=== PATIENT | male | born 1955 | race Caucasian/White ===

== ENCOUNTER 2017-10-25 13:53 | Emergency (ER) | payer MEDICARE, OTHER ==
[~2017-10-25] VITALS: Ht 172.7 cm; Wt 104.3 kg
[2017-10-25 14:29] VITALS: BP 108/50
[2017-10-25] MEDS ORDERED: ACETAMINOPHEN ES 500 MG TABLET ONE (15:52)
[2017-10-25] MEDS ORDERED: ACETAMINOPHEN 325 MG TABLET PO ONE (16:00)
== END 2017-10-25 17:45 | disposition home or self-care (01) ==
LOC: ER 13:57
DX: M54.5 Low back pain (principal); M25.512 Pain in left shoulder; M25.552 Pain in left hip; E11.22 Type 2 diabetes mellitus with diabetic chronic kidney disease; G89.29 Other chronic pain; M85.80 Other specified disorders of bone density and structure, unspecified site; N18.6 End stage renal disease; F10.10 Alcohol abuse, uncomplicated; F17.200 Nicotine dependence, unspecified, uncomplicated; W01.0XXA Fall on same level from slipping, tripping and stumbling without subsequent striking against object, initial encounter; Y93.89 Activity, other specified; Y92.89 Other specified places as the place of occurrence of the external cause; Y99.8 Other external cause status
CPT/HCPCS: 72100; 73030; 73503; 99284; A4606; 73502; Z7610

== ENCOUNTER 2018-12-20 16:00 | Inpatient (IN) | payer MEDICARE, OTHER ==
[~2018-12-20] VITALS: Ht 170.2 cm; Wt 123.5 kg
--- NOTE | 2018-12-20 16:20 | NUR ---
BIBRA FROM [facility] C/O CHEST PAIN SINCE YESTERDAY, 324 ASA AND 0.4 NITRO X 3 GIVEN POWER SAW MECHANIC, ALSO C/O SOB & VOMITED X1. DR. ERVIN @ BS FOR EVAL. PLACED ON SEWAGE SCREEN OPERATOR, SR. WILL CONT TO MONITOR.
[2018-12-20 16:26] LABS: BASOPHILS # (AUTO) 0.1 /CMM (0.0-0.2); BASOPHILS % (AUTO) 0.8 % (0.0-2.0); EOSINOPHILS % (AUTO) 3.7 % (0.0-6.0); HEMATOCRIT 26 % (39-51); HEMOGLOBIN 8.7 g/dL (13.5-17.5); LYMPHOCYTES # (AUTO) 0.5 /CMM (0.8-4.8); LYMPHOCYTES % (AUTO) 5.9 % (20.0-44.0); MEAN CORPUSCULAR HGB CONC 33 g/dl (31.0-36.0); MEAN CORPUSCULAR VOLUME 88 fL (80-96); MONOCYTES # (AUTO) 0.6 /CMM (0.1-1.30); MONOCYTES % (AUTO) 6.3 % (2.0-12.0); NEUTROPHILS # (AUTO) 7.5 /CMM (1.8-8.9); NEUTROPHILS % (AUTO) 83.3 % (43.0-81.0); PLATELET COUNT (AUTO) 221 /CMM (150-450); RED BLOOD CELL COUNT(AUTO) 2.98 MIL/uL (4.5-6.0)
[2018-12-20] MEDS ORDERED: ONDANSETRON HCL/PF 4 MG/2 ML VIAL ONE (16:27)
[2018-12-20] MEDS ORDERED: MORPHINE SULFATE INJ 4 MG/ML DISP.SYRIN ONE (16:28)
[2018-12-20] MEDS ORDERED: NITROGLYCERIN PACKET 1 GM PACKET ONE (16:28)
[2018-12-20] MEDS ORDERED: ONDANSETRON HCL/PF 4 MG/2 ML VIAL IVP ONE (16:30)
[2018-12-20] MEDS ORDERED: ASPIRIN 325 MG TABLET PO ONE (16:30)
[2018-12-20] MEDS ORDERED: NITROGLYCERIN PACKET 1 GM PACKET TD ONE (16:30)
[2018-12-20] MEDS ORDERED: MORPHINE SULFATE INJ 2 MG/ML DISP.SYRIN IV ONE (16:30)
--- NOTE | 2018-12-20 16:36 | NUR ---
MEDICATED PER ERMD ORDER, PT ИРИНА WELL. WILL CONT TO MONITOR.
[2018-12-20 16:41] LABS: ALANINE AMINOTRANSFERASE 19 U/L (12-78); ALBUMIN 3.3 g/dL (3.4-5.0); ALKALINE PHOSPHATASE 89 U/L (46-116); ASPARTATE AMINOTRANSFERASE 13 U/L (15-37); BILIRUBIN,DIRECT 0.2 mg/dL (0.0-0.2); BILIRUBIN,TOTAL 0.4 mg/dL (0.2-1.0); CARBON DIOXIDE 22 mmol/L (21-32); CHLORIDE 98 mmol/L (98-107); GLUCOSE 74 mg/dL (74-106); SODIUM SERUM 137 mmol/L (136-145); TOTAL PROTEIN, SERUM 6.6 g/dL (6.4-8.2)
[2018-12-20 16:45] LABS: POTASSIUM 6.2 mmol/L (3.5-5.1)
[2018-12-20 16:46] LABS: CREATININE 13.8 mg/dL (0.6-1.3); UREA NITROGEN, BLOOD 105 mg/dL (7-18)
[2018-12-20] MEDS ORDERED: SODIUM POLYSTYRENE SULFONATE 15 G/60 ML BOTTLE RC ONE (17:00)
[2018-12-20] MEDS ORDERED: DEXTROSE 50%-WATER 50 ML DISP.SYRIN IVP ONE (17:00)
[2018-12-20] MEDS ORDERED: SODIUM BICARBONATE 5 MEQ/10 ML DISP.SYRIN IV ONE (17:00)
[2018-12-20] MEDS ORDERED: INSULIN REGULAR, HUMAN 100 UNIT/ML 10 ML VIAL IV ONE (17:00)
[2018-12-20] MEDS ORDERED: PARO10TA86 PO (17:18)
[2018-12-20] MEDS ORDERED: HYDR-4076 PO (17:18)
[2018-12-20] MEDS ORDERED: METF500T PO (17:18)
[2018-12-20] MEDS ORDERED: FURO40TA5 PO (17:18)
[2018-12-20] MEDS ORDERED: LEVO50TA8 PO (17:18)
[2018-12-20] MEDS ORDERED: CYCL30DR EACHEYE (17:18)
[2018-12-20] MEDS ORDERED: LISI10TA5 PO (17:18)
[2018-12-20] MEDS ORDERED: SEVE800T8 PO (17:18)
[2018-12-20] MEDS ORDERED: SPIR25TA6 PO (17:18)
[2018-12-20] MEDS ORDERED: BUME1TAB4 PO (17:18)
[2018-12-20] MEDS ORDERED: ONDA4TAB10 PO (17:18)
[2018-12-20] MEDS ORDERED: ASPI-1169 PO (17:18)
[2018-12-20] MEDS ORDERED: TAMS-12 PO (17:18)
[2018-12-20] MEDS ORDERED: FERR325T23 PO (17:18)
[2018-12-20] MEDS ORDERED: GLIP5TAB13 PO (17:18)
[2018-12-20] MEDS ORDERED: METO25TA20 PO (17:18)
[2018-12-20] MEDS ORDERED: FAMO20TA8 PO (17:18)
[2018-12-20] MEDS ORDERED: SODIUM BICARBONATE SYR 50 MEQ/50 ML DISP.SYRIN ONE (17:29)
[2018-12-20] MEDS ORDERED: DEXTROSE 50%-WATER 50 ML DISP.SYRIN ONE (17:29)
[2018-12-20] MEDS ORDERED: SODIUM POLYSTYRENE SULFONATE 15 G/60 ML BOTTLE ONE (17:29)
[2018-12-20] MEDS ORDERED: INSULIN REGULAR, HUMAN 100 UNIT/ML 10 ML VIAL ONE (17:30)
--- NOTE | 2018-12-20 17:50 | NUR ---
MEDICATED PER ERMD ORDER, PT ИРИНА WELL. DENIES CP, SOB, DIZZINESS, N/V, WEAKNESS @ THIS TIME. WILL CONT TO MONITOR.
--- NOTE | 2018-12-20 18:47 | NUR ---
BED 310-2
[2018-12-20] MEDS ORDERED: MAG HYDROX/AL HYDROX/SIMETH 30 ML UDC PO PRN (19:30)
[2018-12-20] MEDS ORDERED: MAGNESIUM HYDROXIDE 30 ML UDC PO PRN (19:30)
[2018-12-20] MEDS ORDERED: HYDROCODONE/APAP 5/325MG 1 EACH TABLET PO PRN (19:30)
[2018-12-20] MEDS ORDERED: ACETAMINOPHEN 325 MG TABLET PO PRN (19:30)
[2018-12-20] MEDS ORDERED: Z GUARD REMEDY 2 OZ OINT TP PRN (19:30)
[2018-12-20] MEDS ORDERED: ZOLPIDEM TARTRATE 5 MG TABLET PO PRN (19:30)
[2018-12-20] MEDS ORDERED: ONDANSETRON HCL/PF 4 MG/2 ML VIAL IVP PRN (19:30)
--- NOTE | 2018-12-20 19:58 | NUR ---
REPORT GIVEN TO MARLINE LLOYD FOR CONT OF CARE.
--- NOTE | 2018-12-20 20:05 | NUR ---
ONCOLOGY PHYSICIAN ASSISTANT ADMISSION NOTES RECEIVED PATIENT VIA [facility] FROM ER. PATIENT IS ALERT AND ORIENTED X4, VERBALLY RESPONSIVE, ABLE TO MAKE NEEDS KNOWN. BREATHING EVEN AND UNLABORED. SOB ON EXERTION ONLY. ON 2LPM OXYGEN VIA NC. WITH COMPLAINTS OF PAIN ON THE LEFT CHEST /10, BUT NOT REQUESTING FOR PAIN MEDICATION. IV ON RIGHT WRIST INTACT AND PATENT. SKIN DRY AND WARM TO TOUCH. AFEBRILE. SKIN ASSESSMENT DONE WITH PICTURES TAKEN AND PLACED IN CHART. PATIENT HAS A LEFT FOREARM HD SHUNT, INTACT AND WITH NO EVIDENCE OF BLEEDING. PER PATIENT, HE MISSED DIALYSIS ON Tuesday12/19/18 DUE TO WEAKNESS. ORIENTED TO THE USE OF UNIT AMENITIES. BELONGINGS ACCOUNTED FOR. PATIENT IS AMBULATORY WITH ASSIST DUE TO WEAKNESS. ALL OTHER NEEDS MET. SAFETY MEASURES IN PLACE. CALL LIGHT WITHIN REACH. WILL CONTINUE TO MONITOR.
[2018-12-20 20:30] VITALS: BP 132/65
[2018-12-20 20:31] VITALS: BP 132/65
[2018-12-20] MEDS: hydrALAZINE HCL 25 MG TABLET PO SCH (21:52)
[2018-12-20] MEDS: BLOOD SUGAR DIAGNOSTIC 1 EACH STRIP IN SCH (21:56)
[2018-12-20] MEDS: DEXTROSE 50%-WATER 50 ML DISP.SYRIN IV PRN (21:58)
--- NOTE | 2018-12-20 22:05 | NUR ---
DIAMOND BLENDER NOTES BS 50- DEXTROSE GIVEN, STAT GLUCOSE ORDERED. WILL CONTINUE TO MONITOR.
--- NOTE | 2018-12-20 22:48 | NUR ---
THERMAL CUTTER HAND NOTES STAT GLUCOSE 147. INSULIN HELD TONIGHT. WILL CONTINUE TO MONITOR.
[2018-12-21] VITALS: BP 129/72
[2018-12-21 04:00] VITALS: BP 130/70
[2018-12-21] MEDS: DEXTROSE 50%-WATER 50 ML DISP.SYRIN IV PRN (06:05)
--- NOTE | 2018-12-21 06:16 | NUR ---
CASE PICKER NOTES BS 46. PATIENT IS ALERT AND ORIENTED X3, VERBALLY RESPONSIVE. SIOBHAN MACKAY HERE IN UNIT AND INFORMED HER THAT THIS IS THE SECOND TIME IT HAPPENED SINCE HE WAS TRANSFERRED TO THE UNIT. PER SIOBHAN LLOYD, GIVE THE DEXTROSE, AND D/C GLIPIZIDE. ALSO INFORMED HER THAT A STAT GLUCOSE CHECK WAS ORDERED. WILL CONTINUE TO MONITOR PATIENT AND CARRY OUT ORDERS.
[2018-12-21] MEDS: BLOOD SUGAR DIAGNOSTIC 1 EACH STRIP IN SCH ×4 (06:31→22:05)
[2018-12-21] MEDS: INSULIN REGULAR, HUMAN 100 UNIT/ML 3 ML VIAL SQ PRN (06:35)
[2018-12-21 06:46] LABS: BASOPHILS % (AUTO) 0.5 % (0.0-2.0); EOSINOPHILS % (AUTO) 2.8 % (0.0-6.0); HEMATOCRIT 25 % (39-51); HEMOGLOBIN 8.2 g/dL (13.5-17.5); LYMPHOCYTES # (AUTO) 0.7 /CMM (0.8-4.8); LYMPHOCYTES % (AUTO) 8.6 % (20.0-44.0); MEAN CORPUSCULAR HGB CONC 33 g/dl (31.0-36.0); MEAN CORPUSCULAR VOLUME 88 fL (80-96); MONOCYTES # (AUTO) 0.5 /CMM (0.1-1.30); MONOCYTES % (AUTO) 6.5 % (2.0-12.0); NEUTROPHILS # (AUTO) 6.3 /CMM (1.8-8.9); NEUTROPHILS % (AUTO) 81.6 % (43.0-81.0); PLATELET COUNT (AUTO) 206 /CMM (150-450); RED BLOOD CELL COUNT(AUTO) 2.86 MIL/uL (4.5-6.0); WHITE BLOOD COUNT (AUTO) 7.7 K/uL (4.3-11.0)
[2018-12-21 07:06] LABS: CALCIUM, SERUM 6.5 mg/dL (8.5-10.1); CARBON DIOXIDE 24 mmol/L (21-32); CHLORIDE 99 mmol/L (98-107); GLUCOSE 52 mg/dL (74-106); MAGNESIUM 2.7 mg/dL (1.8-2.4); SODIUM SERUM 137 mmol/L (136-145)
[2018-12-21 07:08] LABS: IRON, SERUM 28 ug/dl (50-175); TOTAL IRON BINDING CAPACITY 257 ug/dl (250-450)
[2018-12-21 07:09] LABS: CHOLESTEROL 53 mg/dL (<200); HDL CHOLESTEROL 39 mg/dL (40-60); LDL 16 mg/dL (0-99); THYROID STIMULATING HORMONE 3.915 uIU/mL (0.358-3.74); TRIGLYCERIDES 41 mg/dL (30-150)
[2018-12-21 07:12] LABS: FERRITIN 258 ng/mL (8-388); TRIGLYCERIDES 41 mg/dL (30-150)
[2018-12-21 07:13] LABS: CHOLESTEROL 53 mg/dL (<200); HDL CHOLESTEROL 39 mg/dL (40-60); LDL 16 mg/dL (0-99)
--- NOTE | 2018-12-21 07:17 | NUR ---
ENVIRONMENTAL SERVICES AIDE NOTES BS 96 AFTER DEXTROSE GIVEN. ENDORSED TO MARLINE FORTE.
--- NOTE | 2018-12-21 07:18 | NUR ---
OUTBOARD MOTOR TESTER CLOSING NOTES PATIENT RESTING IN BED. NOT IN ANY DISTRESS. ON 3LPM OXYGEN VIA NC. SOB ON EXERTION. SEEN BY DR. WOLF ALREADY WITH ORDERS. NO COMPLAINTS OF PAIN OR DISCOMFORT. NO FACIAL GRIMACING. ALL OTHER NEEDS MET. SAFETY MEASURES IN PLACE. CALL LIGHT WITHIN REACH. ENDORSED TO MARLINE FORTE.
[2018-12-21 07:27] LABS: CREATININE 14.3 mg/dL (0.6-1.3); UREA NITROGEN, BLOOD 111 mg/dL (7-18)
[2018-12-21 07:28] LABS: PHOSPHORUS 10.1 mg/dL (2.5-4.9)
[2018-12-21 08:00] VITALS: BP 162/75
[2018-12-21] MEDS: BUMETANIDE (1 MG) 1 MG TABLET PO SCH ×2 (08:23→18:07)
[2018-12-21] MEDS: ASPIRIN 81 MG TAB.CHEW PO SCH (08:23)
[2018-12-21] MEDS: ATORVASTATIN 40 MG TABLET PO SCH (08:23)
[2018-12-21] MEDS: PAROXETINE HCL 10 MG TABLET PO SCH (08:23)
[2018-12-21] MEDS: FERROUS SULFATE (325 MG) 325 MG/TAB TABLET PO SCH (08:23)
[2018-12-21] MEDS: PANTOPRAZOLE 40 MG TABLET.DR PO SCH (08:24)
[2018-12-21] MEDS: METOPROLOL TARTRATE 25 MG TABLET PO SCH ×2 (08:24→18:07)
[2018-12-21] MEDS: LEVOTHYROXINE SODIUM 50 MCG TABLET PO SCH (08:24)
[2018-12-21] MEDS: SEVELAMER CARBONATE 800 MG TABLET PO SCH ×3 (08:24→18:07)
[2018-12-21] MEDS: hydrALAZINE HCL 25 MG TABLET PO SCH ×4 (08:24→21:26)
[2018-12-21] MEDS: TAMSULOSIN 0.4 MG CAP.SR.24H PO SCH (08:24)
[2018-12-21] MEDS: FUROSEMIDE 40 MG TABLET PO SCH (08:26)
[2018-12-21] MEDS: HEPARIN SODIUM, PORCINE 5000 UNITS/1 ML VIAL SQ SCH ×2 (08:34→21:59)
[2018-12-21] MEDS ORDERED: glipiZIDE 5 MG TABLET PO SCH (09:00)
--- NOTE | 2018-12-21 11:43 | NUR ---
BREAD SLICER MACHINE OPENING NOTES Patient received on 3 L o2, nasal cannula. No sob noted. Patient denies pain or discomfort. Patient on Bed at the lowest setting, call light within reach.
[2018-12-21 16:00] VITALS: BP 138/72
--- NOTE | 2018-12-21 18:48 | NUR ---
RN MS CLOSING NOTES Patient resting in bed, on 2L o2 nasal cannula, no sob noted. Patient denies pain. Patient did HD today and took out 3 L of fluid. Patient's vital sign stable all shift. Patient's bed at lowest setting and call light within reach. Will give report to RN bedside for tonight.
--- NOTE | 2018-12-21 19:56 | NUR ---
RN MS OPENING NOTES RECEIVED PT IN BED, AWAKE ALERT ORIENTED X4, BREATHING EVEN AND UNLABORED ON 2L O2 NC. NO SOB, NO CHEST PAIN NO COUGH OR CONGESTION, NO COMPLAINT OF ANY OTHER PAIN OR DISCOMFORT AT THE MOMENT. IV ACCESS ON THE L WRIST #20G PATENT AND FLUSHING, AND LFA SHUNT IN PLACE, DRESSING CLEAN AND DRY. BED IN LOWEST LOCKED POSITION ,CALL LIGHT WITHIN REACH AT ALL TIMES, WILL CONTINUE TO MONITOR FREQUENTLY.
[2018-12-21 20:00] VITALS: BP 150/73
--- NOTE | 2018-12-21 21:01 | NUR ---
Spoke with patient and sister, states he lives locally in one of the unit of a residential facility that patient co-owned. He ambulates with a cane and is semi-independent with adl's. He received hemodialysis every TTHS at [facility] [phone]. He plan to return to home, family will provide transportation. Addendum: 12/21/18 at 2119 by RENU ÁLVAREZ RN Amended: Links added.
--- NOTE | 2018-12-21 22:00 | NUR ---
pt bg of 135, per pt request, no insulin administered since his bg usually drops at night, will continue to monitor
--- NOTE | 2018-12-22 06:17 | NUR ---
RN MS CLOSING NOTES PT REMAINS IN BED, AWAKE ALERT ORIENTED X4, BREATHING EVEN AND UNLABORED ON 2L O2 NC. NO SOB, NO CHEST PAIN NO COUGH OR CONGESTION, NO COMPLAINT OF ANY OTHER PAIN OR DISCOMFORT AT THE MOMENT. IV ACCESS ON THE L WRIST #20G PATENT AND FLUSHING, AND LFA SHUNT IN PLACE, DRESSING CLEAN AND DRY, NO URINE OUTPUT, 2 BMS DURING SHIFT. BED IN LOWEST LOCKED POSITION ,CALL LIGHT WITHIN REACH AT ALL TIMES, WILL ENDORSE TO DAY NURSE FOR FELICIA.
[2018-12-22] MEDS: BLOOD SUGAR DIAGNOSTIC 1 EACH STRIP IN SCH ×4 (06:35→21:04)
--- NOTE | 2018-12-22 07:29 | NUR ---
RN MS OPENING NOTES Received patient on 2 L nasal cannula, no sob noted, and patient is lying down on his bed comfortably. Patient denies pain at this time, patients IV is at the left wrist 20 gauge and flushing. Awaiting for patient's ct angio with 3d imaging, and HD today procedure today.
[2018-12-22 08:00] VITALS: BP 136/69
[2018-12-22 08:01] LABS: ALANINE AMINOTRANSFERASE 17 U/L (12-78); ALBUMIN 3.4 g/dL (3.4-5.0); ALKALINE PHOSPHATASE 90 U/L (46-116); ASPARTATE AMINOTRANSFERASE 27 U/L (15-37); BILIRUBIN,TOTAL 0.5 mg/dL (0.2-1.0); CARBON DIOXIDE 20 mmol/L (21-32); CHLORIDE 95 mmol/L (98-107); GLUCOSE 72 mg/dL (74-106); MAGNESIUM 2.7 mg/dL (1.8-2.4); POTASSIUM 5.9 mmol/L (3.5-5.1); SODIUM SERUM 134 mmol/L (136-145); TOTAL PROTEIN, SERUM 6.9 g/dL (6.4-8.2)
[2018-12-22 08:05] LABS: UREA NITROGEN, BLOOD 99 mg/dL (7-18)
[2018-12-22 08:06] LABS: CREATININE 12.2 mg/dL (0.6-1.3)
[2018-12-22 08:10] LABS: PHOSPHORUS 8.7 mg/dL (2.5-4.9)
[2018-12-22] MEDS: FERROUS SULFATE (325 MG) 325 MG/TAB TABLET PO SCH (08:41)
[2018-12-22] MEDS: BUMETANIDE (1 MG) 1 MG TABLET PO SCH ×2 (08:41→17:32)
[2018-12-22] MEDS: FUROSEMIDE 40 MG TABLET PO SCH (08:41)
[2018-12-22] MEDS: TAMSULOSIN 0.4 MG CAP.SR.24H PO SCH (08:41)
[2018-12-22] MEDS: hydrALAZINE HCL 25 MG TABLET PO SCH ×4 (08:41→20:37)
[2018-12-22] MEDS: SEVELAMER CARBONATE 800 MG TABLET PO SCH ×3 (08:41→17:31)
[2018-12-22] MEDS: LEVOTHYROXINE SODIUM 50 MCG TABLET PO SCH (08:41)
[2018-12-22] MEDS: ASPIRIN 81 MG TAB.CHEW PO SCH (08:41)
[2018-12-22] MEDS: PANTOPRAZOLE 40 MG TABLET.DR PO SCH (08:42)
[2018-12-22] MEDS: METOPROLOL TARTRATE 25 MG TABLET PO SCH ×2 (08:42→17:31)
[2018-12-22] MEDS: ATORVASTATIN 40 MG TABLET PO SCH (08:42)
[2018-12-22] MEDS: PAROXETINE HCL 10 MG TABLET PO SCH (08:42)
[2018-12-22] MEDS: HEPARIN SODIUM, PORCINE 5000 UNITS/1 ML VIAL SQ SCH ×2 (08:54→20:39)
[2018-12-22 09:31] LABS: BASOPHILS % (AUTO) 0.7 % (0.0-2.0); EOSINOPHILS % (AUTO) 3.1 % (0.0-6.0); HEMATOCRIT 25 % (39-51); HEMOGLOBIN 8.1 g/dL (13.5-17.5); LYMPHOCYTES # (AUTO) 0.5 /CMM (0.8-4.8); LYMPHOCYTES % (AUTO) 7.3 % (20.0-44.0); MEAN CORPUSCULAR HGB CONC 33 g/dl (31.0-36.0); MEAN CORPUSCULAR VOLUME 88 fL (80-96); MONOCYTES # (AUTO) 0.5 /CMM (0.1-1.30); MONOCYTES % (AUTO) 8.2 % (2.0-12.0); NEUTROPHILS # (AUTO) 5.1 /CMM (1.8-8.9); NEUTROPHILS % (AUTO) 80.7 % (43.0-81.0); PLATELET COUNT (AUTO) 187 /CMM (150-450); RED BLOOD CELL COUNT(AUTO) 2.84 MIL/uL (4.5-6.0); WHITE BLOOD COUNT (AUTO) 6.4 K/uL (4.3-11.0)
--- NOTE | 2018-12-22 09:40 | NUR ---
WOUND CARE CONSULT: RECEIVED CONSULT FOR GROIN REDNESS. PT NOT SEEN YET FOR SKIN ASSESSMENT DUE TO PT HAVING PROCEDURE AT THIS TIME. RECOMMENDATIONS MADE FOR SKIN PROTECTION. DISCUSSED WITH NURSING STAFF. CURRENT FREDY SCORE IS 16. WILL SEE PRN.
[2018-12-22] MEDS ORDERED: IOHEXOL-350 100 ML VIAL IV ONE (11:03)
[2018-12-22] MEDS ORDERED: METOPROLOL TARTRATE INJ 5 MG/5 ML AMPUL ONE (11:04)
[2018-12-22] MEDS ORDERED: IV NS 0.9% 250 ML IV ONE (11:04)
[2018-12-22] MEDS ORDERED: CT SWABBABLE VALVE TRANS SET 1 EA INFUS.SET MC ONE (11:04)
[2018-12-22] MEDS ORDERED: NITROGLYCERIN 0.4 MG/TAB BOTTLE SL ONE (11:30)
[2018-12-22] MEDS ORDERED: IV NS 0.9% 500 ML IV ONE (11:30)
[2018-12-22] MEDS ORDERED: METOPROLOL TARTRATE INJ 5 MG/5 ML AMPUL IVP ONE (11:30)
--- NOTE | 2018-12-22 12:00 | NUR ---
RN/CTA 1040 PATIENT ALERT, ORIENTED AND AWARE THE PROCEDURE. INFORMED CONSENT NOTED IN THE CHART. [address]-TECH INSERTED IV 18G TO RIGHT UPPER CHEST, PATENT AND FLUSHING WELL. CONNECTED TO MONITOR. DENIED ANY SOB OR CHEST PAIN AT THIS TIME. [address] VIA ACLS PROTOCOL. VS 148/74, 62, 20, 99%. 1045 PATIENT WITH EPISODE OF SOB/ANXIETY AT THIS TIME, COMFORT MEASURES PROVIDED WITH HELP. PATIENT WITH EPISODES OF REFUSING PROCEDURE DUE TO SOB/ANXIETY. CONNECTED TO 4L NC AT 99%. EXPLAINED RISK AND BENEFITS WITH HELP. [address] [employer] [address]. WOLF RE: PATIENT CONDITION WITH NO NEW ORDER AND TO CONT WITH THE PROCEDURE EVEN IF ITS LIMITED. 1110 CT W/O CONTRAST DONE. 1117 5MG METOPROLOL VIA IV GIVEN AT THIS TIME D/T HR OF 67. 1122 AGAIN 5MG METOPROLOL VIA IV GIVEN D/T HR OF 64. 1129 AGAIN 5MG METOPROLOL VIA IV GIVEN D/T HR OF 63 WITH HELP, HR WENT DOWN TO 59. CT WITH CONTRAST INITIATED BY [employer]. 1135 CTA COMPLETED AT THIS TIME. PATIENT ИРИНА WELL. VS 124, 60, 18, 99%. DENIED CHEST PAIN/SOB/ANXIETY. 1138 TRANSPORTED TO PATIENT ROOM VIA ACLS PROTOCOL. REPORT GIVEN TO REANNA-MARLINE/PRIMARY NURSE.
[2018-12-22] MEDS: LIDOCAINE 5% (PATCH) 1 EA PATCH TP SCH (12:32)
[2018-12-22] MEDS: INSULIN REGULAR, HUMAN 100 UNIT/ML 3 ML VIAL SQ PRN ×2 (12:55→21:07)
[2018-12-22 16:00] VITALS: BP 131/63
--- NOTE | 2018-12-22 17:17 | NUR ---
RN MS NOTES After dialysis, 2,500 mL fluid were taken out. B/P of 121/65 and 65 heart rate right after HD.
[2018-12-22] MEDS: SOD FERRIC GLUC 125 MG in IV NS 0.9% 100 ML IV SCH (18:08)
--- NOTE | 2018-12-22 18:57 | NUR ---
RN MS CLOSING NOTES Patient remaisn in bed 1/0 x4, patient remains on 2L nasal cannula no sob noted. Patient's vital signs were stable after his HD, 2,500 mL were taken from him. Patient had 1 BM today. patient denies pain at this time. patient's right wrist IV remains free of obstruction. Patient have another IV on his shoulder that was placed by the CT dept, 18 gauge. Patient's bed at the lowest level, call light within reach. Will give bed side report to assembler 1st shift RN.
--- NOTE | 2018-12-22 19:35 | NUR ---
MS MARLINE OPENING NOTES: RECEIVED PT ON 2LPM VIA NC AND IS TOLERATING WELL. PT HAS DIALYSIS ACCESS ON L FOREARM. DRESSING KEPT CLEAN AND DRY. PT HAS IV ON R WRIST #20G AND IS PATENT AND INTACT. CURRENTLY H/L. PT ALSO HAS IV ON R SHOULDER #18G AND IS PATENT AND INTACT. CURRENTLY H/L. BED KEPT IN LOW, LOCKED POSITION, AND SIDE RAILS X 2UP. PT REQUESTING TO SMOKE. EXPLAIN TO PT RISKS OF SMOKING. PT STILL REQUESTING TO SMOKE. EXPLAINED TO HIM THAT HE HAS TO SIGN A FORM. BED KEPT IN LOW, LOCKED POSITION, AND SIDE RAILS X 2 UP. WILL CONTINUE TO MONITOR PT.
[2018-12-22 20:00] VITALS: BP 150/77
--- NOTE | 2018-12-22 21:10 | NUR ---
MS RN NOTES: BLOOD SUGAR THIS PM WAS 162. 3 UNITS OF INSULIN WAS ADMINISTERED. SNACK WAS PROVIDED TO PT. WILL CONTINUE TO MONITOR.
--- NOTE | 2018-12-23 06:17 | NUR ---
MS RN NOTES: BLOOD SUGAR WAS CHECKED AND IT WAS 67. PT GIVEN CRANBERRY JUICE AND VICKIE CRACKERS. WILL RECHECK BLOOD SUGAR AGAIN. PT AWAKE AND FULLY ALERT AND UNDERSTANDS RISK OF CURRENT BLOOD SUGAR.
--- NOTE | 2018-12-23 06:28 | NUR ---
MS RN NOTES: BLOOD SUGAR RECHECKED AND IS NOW 124. WILL NOT ADMINISTER ANY INSULIN. WILL CONTINUE TO MONITOR.
[2018-12-23] MEDS: BLOOD SUGAR DIAGNOSTIC 1 EACH STRIP IN SCH ×4 (06:29→22:02)
[2018-12-23] MEDS: INSULIN REGULAR, HUMAN 100 UNIT/ML 3 ML VIAL SQ PRN ×4 (06:30→22:31)
--- NOTE | 2018-12-23 06:34 | NUR ---
MS RN CLOSING NOTES: ALL NEEDS WERE ATTENDED AND ANTICIPATED FOR. PT KEPT CLEAN, DRY, AND COMFORTABLE. IVS REMAINS INTACT. BOTH HAVE BEEN FLUSHED. CURRENTLY H/L. BLOOD SUGAR THIS AM WAS 124 AFTER JUICE AND CRACKERS WERE ADMINISTERED TO PT. PT HAS L AV SHUNT AND IS INTACT. DRESSING KEPT CLEAN AND DRY. BED KEPT IN LOW, LOCKED POSITION, AND SIDE RAILS X 2UP. WILL ENDORSE TO AM NURSE FOR FELICIA.
--- NOTE | 2018-12-23 07:28 | NUR ---
MS RN OPENING NOTE RECEIVED PT IN BED, ALERT AND ORIENTED X4. DENIES CHEST PAIN, SOB, BREATHING IS EVEN AND UNLABORED ON 2L NC. PT STATES HE HAS CHRONIC NECK PAIN/DISCOMFORT BUT DOES NOT WANT ANY PRN MEDICATIONS FOR PAIN AT THIS TIME AND WILL WAIT FOR HIS LIDOCAINE PATCH AT NOON. LEFT AV FISTULA POSITIVE FOR BRUIT AND THRILL, RIGHT WRIST #18G AND RIGHT SHOULDER #18G IV ARE SALINE LOCKED WITHOUT REDNESS OR SWELLING. ALL NEEDS ATTENDED TO. BED IS LOCKED AND IN LOWEST POSITION, SIDE RAILS UP X2, BED ALARM ON, CALL LIGHT AND POSSESSIONS WITHIN REACH.
[2018-12-23 08:00] VITALS: BP 133/72
[2018-12-23] MEDS: PANTOPRAZOLE 40 MG TABLET.DR PO SCH (08:26)
[2018-12-23] MEDS: ASPIRIN 81 MG TAB.CHEW PO SCH (08:27)
[2018-12-23] MEDS: METOPROLOL TARTRATE 25 MG TABLET PO SCH ×2 (08:27→17:21)
[2018-12-23] MEDS: SEVELAMER CARBONATE 800 MG TABLET PO SCH ×3 (08:27→17:16)
[2018-12-23] MEDS: ATORVASTATIN 40 MG TABLET PO SCH (08:27)
[2018-12-23] MEDS: BUMETANIDE (1 MG) 1 MG TABLET PO SCH ×2 (08:27→17:16)
[2018-12-23] MEDS: TAMSULOSIN 0.4 MG CAP.SR.24H PO SCH (08:27)
[2018-12-23] MEDS: LEVOTHYROXINE SODIUM 50 MCG TABLET PO SCH (08:27)
[2018-12-23] MEDS: hydrALAZINE HCL 25 MG TABLET PO SCH ×4 (08:28→22:02)
[2018-12-23] MEDS: PAROXETINE HCL 10 MG TABLET PO SCH (08:28)
[2018-12-23] MEDS: FUROSEMIDE 40 MG TABLET PO SCH (08:28)
[2018-12-23] MEDS: FERROUS SULFATE (325 MG) 325 MG/TAB TABLET PO SCH (08:28)
[2018-12-23] MEDS: HEPARIN SODIUM, PORCINE 5000 UNITS/1 ML VIAL SQ SCH ×2 (08:34→22:32)
[2018-12-23 09:28] LABS: BASOPHILS % (AUTO) 0.7 % (0.0-2.0); EOSINOPHILS % (AUTO) 2.8 % (0.0-6.0); HEMATOCRIT 23 % (39-51); HEMOGLOBIN 7.5 g/dL (13.5-17.5); LYMPHOCYTES # (AUTO) 0.4 /CMM (0.8-4.8); LYMPHOCYTES % (AUTO) 6.7 % (20.0-44.0); MEAN CORPUSCULAR HGB CONC 33 g/dl (31.0-36.0); MEAN CORPUSCULAR VOLUME 87 fL (80-96); MONOCYTES # (AUTO) 0.4 /CMM (0.1-1.30); MONOCYTES % (AUTO) 7.7 % (2.0-12.0); NEUTROPHILS # (AUTO) 4.7 /CMM (1.8-8.9); NEUTROPHILS % (AUTO) 82.1 % (43.0-81.0); PLATELET COUNT (AUTO) 171 /CMM (150-450); RED BLOOD CELL COUNT(AUTO) 2.59 MIL/uL (4.5-6.0); WHITE BLOOD COUNT (AUTO) 5.7 K/uL (4.3-11.0)
[2018-12-23 09:39] LABS: CALCIUM, SERUM 6.9 mg/dL (8.5-10.1); POTASSIUM 5.5 mmol/L (3.5-5.1)
[2018-12-23 09:42] LABS: CREATININE 11.2 mg/dL (0.6-1.3)
[2018-12-23] MEDS ORDERED: EPOETIN ALFA (10,000 UNIT) 10,000 UNIT/ML VIAL IV ONE (11:00)
[2018-12-23] MEDS: LIDOCAINE 5% (PATCH) 1 EA PATCH TP SCH (12:00)
--- NOTE | 2018-12-23 12:40 | NUR ---
MS RN NOTE HYDRALAZINE HELD, DIALYSIS NURSE AT THE BEDSIDE TO INITIATE HD.
--- NOTE | 2018-12-23 14:45 | NUR ---
MS RN NOTE EPOGEN IV ADMINISTERED LATE PENDING HD COMPLETION.
[2018-12-23] MEDS: SOD FERRIC GLUC 125 MG in IV NS 0.9% 100 ML IV SCH (14:55)
--- NOTE | 2018-12-23 15:09 | NUR ---
MS RN NOTE HD COMPLETED WITH 3.9 L OUT. BP: 137/49, HR: 56. MENTAL STATUS AT BASELINE, PT DENIES ANY DIZZINESS, SOB, CHEST PAIN, OR DISCOMFORT AT THIS TIME. BANDAGE AND GAUZE TO LEFT FA IS CLEAN, DRY AND INTACT.
--- NOTE | 2018-12-23 15:11 | NUR ---
MS RN NOTE RIGHT SHOULDER PERIPHERAL IV FOUND TO BE DISLODGED. REMOVED WITH CATHETER TIP INTACT. PT TOLERATED PROCEDURE WELL.
[2018-12-23 16:00] VITALS: BP 139/61
--- NOTE | 2018-12-23 18:43 | NUR ---
MS RN CLOSING NOTE PT IN BED, ALERT AND ORIENTED X4. DENIES CHEST PAIN, SOB, BREATHING IS EVEN AND UNLABORED ON 2L NC. LEFT AV FISTULA POSITIVE FOR BRUIT AND THRILL, RIGHT WRIST #18G IS SALINE LOCKED WITHOUT REDNESS OR SWELLING. PT IS S/P HD TODAY WITH 3.9 OUT, VS AT BASELINE FOLLOWING HD. ADLS PROVIDED AND PT ASSISTED TO TURN AND REPOSITIONED Q2H FOR THE DURATION OF THE SHIFT. ALL NEEDS ATTENDED TO. BED IS LOCKED AND IN LOWEST POSITION, SIDE RAILS UP X2, BED ALARM ON, CALL LIGHT AND POSSESSIONS WITHIN REACH. WILL ENDORSE TO CHASER APPRENTICE NURSE FOR CONTINUITY OF CARE.
[2018-12-23 20:00] VITALS: BP 140/63
--- NOTE | 2018-12-23 20:00 | NUR ---
MS RN NOTES RECEIVED PATIENT AWAKE IN BED AND WATCHING TV WITH NO DISTRESS NOTED. CALL LIGHT WITHIN REACH. NO C/O PAIN OR DISCOMFORT. PERIPHERAL LINE INTACT AND PATENT. LFA AV SHUNT INTACT WITH NO REDNESS, BLEEDING, SWELLING AND WITH (+) BRUIT AND THRILL. BED ALARM ON AND FUNCTIONING PROPERLY. ROOM FREE OF CLUTTER AND BELONGINGS KEPT NEAR BEDSIDE. WILL CONTINUE TO MONITOR.
--- NOTE | 2018-12-23 22:00 | NUR ---
HGB 7.5, PLT 171. PATIENT RECEIVED IV EPOGEN X1 DOSE EARLIER TODAY WITH NO LAB REDRAW. GABINO MCCANN AWARE AND OK TO ADMINISTER SCHEDULED HEPARIN.
--- NOTE | 2018-12-24 06:41 | NUR ---
MS RN NOTES RECEIVED PATIENT AWAKE IN BED WITH NO DISTRESS NOTED. CALL LIGHT WITHIN REACH. ALL DUE MEDS GIVEN ORDERED WITH NO ASE NOTED. NO C/O PAIN OR DISCOMFORT. PERIPHERAL LINE INTACT AND PATENT. LFA AV SHUNT INTACT WITH NO REDNESS, BLEEDING, SWELLING AND WITH (+) BRUIT AND THRILL. BED ALARM ON AND FUNCTIONING PROPERLY. ROOM FREE OF CLUTTER AND BELONGINGS KEPT NEAR BEDSIDE. WILL CONTINUE TO MONITOR.
[2018-12-24 08:00] VITALS: BP 138/64
--- NOTE | 2018-12-24 08:00 | NUR ---
MS RN NOTES PATIENT IN BED RESTING NO SOB OR ACUTE DISTRESS NOTED. PATIENT ALERT, ORIENTED X3. PERIPHERAL IV INTACT PATENT. BED IN LOW LOCKED POSITION. WILL CONTINUE TO MONITOR.
[2018-12-24] MEDS: ATORVASTATIN 40 MG TABLET PO SCH (08:17)
[2018-12-24] MEDS: BLOOD SUGAR DIAGNOSTIC 1 EACH STRIP IN SCH ×2 (08:17→12:00)
[2018-12-24] MEDS: FUROSEMIDE 40 MG TABLET PO SCH (08:17)
[2018-12-24] MEDS: ASPIRIN 81 MG TAB.CHEW PO SCH (08:17)
[2018-12-24] MEDS: SEVELAMER CARBONATE 800 MG TABLET PO SCH (08:17)
[2018-12-24] MEDS: TAMSULOSIN 0.4 MG CAP.SR.24H PO SCH (08:18)
[2018-12-24] MEDS: LEVOTHYROXINE SODIUM 50 MCG TABLET PO SCH (08:18)
[2018-12-24] MEDS: METOPROLOL TARTRATE 25 MG TABLET PO SCH (08:18)
[2018-12-24] MEDS: BUMETANIDE (1 MG) 1 MG TABLET PO SCH (08:18)
[2018-12-24] MEDS: FERROUS SULFATE (325 MG) 325 MG/TAB TABLET PO SCH (08:18)
[2018-12-24] MEDS: HEPARIN SODIUM, PORCINE 5000 UNITS/1 ML VIAL SQ SCH (08:19)
[2018-12-24] MEDS: PAROXETINE HCL 10 MG TABLET PO SCH (08:19)
[2018-12-24] MEDS: PANTOPRAZOLE 40 MG TABLET.DR PO SCH (08:19)
[2018-12-24 09:00] VITALS: BP 138/64
[2018-12-24] MEDS: hydrALAZINE HCL 25 MG TABLET PO SCH (09:00)
[2018-12-24] MEDS ORDERED: ATOR40TA PO (10:05)
[2018-12-24] MEDS ORDERED: GLIP5TAB13 PO (10:05)
--- NOTE | 2018-12-24 12:00 | NUR ---
MS RN NOTES PATIENT DISCHARGED HOME WITH CAREGIVER. PATIENT ALERT, ORIENTED X3. DISCHARGE INSTRUCTIONS PROVIDED TO PATIENT AND CAREGIVER, VERBALIZED UNDERSTANDING. DISCHARGE PROTOCOL FOLLOWED. PATIENT REFUSED DISCHARGE PICTURES STATES HE ALREADY GOT DRESSED AND WILL NOT UNDRESS. ALL BELONGINGS ACCOUNTED FOR BELONGING LIST SIGNED. PERIPHERAL IV REMOVED WITH MINIMAL BLEEDING. ID BAND REMOVED. PRESCRIPTION PROVED TO PATIENT. MD AWARE OF ALL ABNORMAL TESTS. PATIENT ESCORTED TO CAR .
== END 2018-12-24 12:21 | disposition home or self-care (01) | DRG 291 ==
LOC: ER 16:00 → TELE 19:03 → MED 12-21 09:43
PROVIDERS: ADMIT Nurse Practitioner Acute Care; ATTEND Nurse Practitioner Acute Care
PROC: 5A1D70Z Performance of Urinary Filtration, Intermittent, Less than 6 Hours Per Day (ICD-10-PCS; principal; 2018-12-21)
PROC: 5A1D70Z Performance of Urinary Filtration, Intermittent, Less than 6 Hours Per Day (ICD-10-PCS; 2018-12-22)
PROC: 5A1D70Z Performance of Urinary Filtration, Intermittent, Less than 6 Hours Per Day (ICD-10-PCS; 2018-12-23)
DX: I13.2 Hypertensive heart and chronic kidney disease with heart failure and with stage 5 chronic kidney disease, or end stage renal disease (principal); N18.6 End stage renal disease; I50.33 Acute on chronic diastolic (congestive) heart failure; E87.1 Hypo-osmolality and hyponatremia; E11.22 Type 2 diabetes mellitus with diabetic chronic kidney disease; E11.649 Type 2 diabetes mellitus with hypoglycemia without coma; E87.5 Hyperkalemia; Z99.2 Dependence on renal dialysis; Z79.890 Hormone replacement therapy; Z79.84 Long term (current) use of oral hypoglycemic drugs; Z79.82 Long term (current) use of aspirin; Z79.899 Other long term (current) drug therapy; E66.9 Obesity, unspecified; D64.9 Anemia, unspecified; E83.39 Other disorders of phosphorus metabolism; I44.7 Left bundle-branch block, unspecified; D63.8 Anemia in other chronic diseases classified elsewhere; Z72.0 Tobacco use; M48.02 Spinal stenosis, cervical region; M89.8X9 Other specified disorders of bone, unspecified site
CPT/HCPCS: 36415; 71045-TC; 72125-TC; 75574; 80048-TC; 80053-TC; 80061-TC; 80076-TC; 82728-TC; 82947-TC; 82962-TC; 83540-TC; 83735-TC; 84100-TC; 84443-TC; 84484-TC; 85025-TC; 85730-TC; 86706; 87081-TC; 87340; 90935-TC; 93307-TC; 94799-TC; 97116-TC; 97530-TC; G0378; J0885; J1644; J1815; J2270; J2405; J2916; J3490; J7030; J7040; J7050; Q9967

== ENCOUNTER 2019-05-18 16:45 | Inpatient (IN) | payer MEDICARE, OTHER ==
[~2019-05-18] VITALS: Ht 165.1 cm; Wt 119.7 kg
[2019-05-18] VITALS (10 sets, daily range): BP systolic 88–133; BP diastolic 48–62
[~2019-05-18 16:45] MED LIST: ASPI-1169 PO; ATOR40TA PO; BUME1TAB9 PO; CYCL30DR EACHEYE; FAMO20TA8 PO; FERR325T23 PO; FURO40TA5 PO; GLIP5TAB13 PO; HYDR-4076 PO; LEVO50TA8 PO; METO25TA20 PO; ONDA4TAB10 PO; PARO10TA86 PO; SEVE800T8 PO; TAMS-12 PO
--- NOTE | 2019-05-18 17:03 | NUR ---
BIB RA C/O WEAKNESS, WITH NAUSEA, VOMITING, AND DIARRHEA X 3 DAYS MISSED DIALYSIS ON TUESDAY. PT IS AOX4, VSS, RR EVEN AND UNLABORED ON RA. HAS AV SHUNT IN LEFT FOREARM. SKIN INTACT, NO ACUTE DISTRESS NOTED. DENIES DIZZINESS, CHANGES IN VISION. ON MONITOR, MADE COMFORTABLE, READY FOR EVAL.
[2019-05-18 17:26] LABS: BASOPHILS # (AUTO) 0.1 /CMM (0.0-0.2); BASOPHILS % (AUTO) 1.2 % (0.0-2.0); EOSINOPHILS % (AUTO) 4.5 % (0.0-6.0); HEMATOCRIT 36 % (39-51); HEMOGLOBIN 11.7 g/dL (13.5-17.5); LYMPHOCYTES # (AUTO) 0.7 /CMM (0.8-4.8); LYMPHOCYTES % (AUTO) 8.6 % (20.0-44.0); MEAN CORPUSCULAR HGB CONC 32 g/dl (31.0-36.0); MEAN CORPUSCULAR VOLUME 89 fL (80-96); MONOCYTES # (AUTO) 0.5 /CMM (0.1-1.30); MONOCYTES % (AUTO) 5.7 % (2.0-12.0); NEUTROPHILS # (AUTO) 6.9 /CMM (1.8-8.9); PLATELET COUNT (AUTO) 212 /CMM (150-450); RED BLOOD CELL COUNT(AUTO) 4.07 MIL/uL (4.5-6.0); WHITE BLOOD COUNT (AUTO) 8.7 K/uL (4.3-11.0)
[2019-05-18 17:39] LABS: ALANINE AMINOTRANSFERASE 20 U/L (12-78); ALBUMIN 3.7 g/dL (3.4-5.0); ALKALINE PHOSPHATASE 75 U/L (46-116); ASPARTATE AMINOTRANSFERASE 14 U/L (15-37); BILIRUBIN,DIRECT 0.1 mg/dL (0.0-0.2); BILIRUBIN,TOTAL 0.4 mg/dL (0.2-1.0); CALCIUM, SERUM 7.9 mg/dL (8.5-10.1); CARBON DIOXIDE 23 mmol/L (21-32); CHLORIDE 100 mmol/L (98-107); GLUCOSE 61 mg/dL (74-106); SODIUM SERUM 136 mmol/L (136-145); TOTAL PROTEIN, SERUM 7.1 g/dL (6.4-8.2)
[2019-05-18 17:59] LABS: CREATININE 13.6 mg/dL (0.6-1.3); UREA NITROGEN, BLOOD 95 mg/dL (7-18)
[2019-05-18] MEDS ORDERED: SODIUM POLYSTYRENE SULFONATE 15 G/60 ML BOTTLE PO ONE (18:00)
[2019-05-18] MEDS ORDERED: Calcium Gluconate 0.465 MEQ/ML VIAL IV ONE ×2 (18:00→18:10)
[2019-05-18] MEDS ORDERED: DEXTROSE 50%-WATER 50 ML DISP.SYRIN IV ONE (18:00)
[2019-05-18] MEDS ORDERED: INSULIN REGULAR, HUMAN 100 UNIT/ML 10 ML VIAL IV ONE (18:00)
[2019-05-18] MEDS: ALBUTEROL FS 2.5 MG/0.5 ML VIAL.NEB NEB ONE ×2 (18:00→19:00)
[2019-05-18] MEDS ORDERED: SODIUM POLYSTYRENE SULFONATE 15 G/60 ML BOTTLE ONE (18:10)
[2019-05-18] MEDS ORDERED: DEXTROSE 50%-WATER 50 ML DISP.SYRIN ONE (18:10)
[2019-05-18] MEDS ORDERED: INSULIN REGULAR, HUMAN 100 UNIT/ML 10 ML VIAL ONE (18:10)
[2019-05-18] MEDS ORDERED: ALBUTEROL FS 2.5 MG/0.5 ML VIAL.NEB ONE (18:15)
--- NOTE | 2019-05-18 18:20 | NUR ---
RESPIRATORY THERAPIST AT BEDSIDE FOR ABG BLOOD DRAW AND BREATHING TX
[2019-05-18] MEDS ORDERED: NATE60TA PO (18:37)
[2019-05-18] MEDS ORDERED: [UNRECOGNIZED DRUG - CODE] BNOSTRILS (18:37)
[2019-05-18] MEDS ORDERED: METF500T PO (18:37)
[2019-05-18] MEDS ORDERED: GLIP5TAB13 PO (18:37)
[2019-05-18] MEDS ORDERED: SERT100T PO (18:37)
[2019-05-18] MEDS ORDERED: IV D5/0.45 NACL 1,000 ML IV PRN (18:51)
[2019-05-18] MEDS ORDERED: ACETAMINOPHEN 325 MG TABLET PO PRN (19:00)
[2019-05-18] MEDS ORDERED: HYDROCODONE/APAP 5/325MG 1 EACH TABLET PO PRN (19:00)
[2019-05-18] MEDS ORDERED: ONDANSETRON HCL/PF 4 MG/2 ML VIAL IVP PRN (19:00)
[2019-05-18] MEDS ORDERED: MAGNESIUM HYDROXIDE 30 ML UDC PO PRN (19:00)
[2019-05-18] MEDS ORDERED: MAG HYDROX/AL HYDROX/SIMETH 30 ML UDC PO PRN (19:00)
[2019-05-18] MEDS ORDERED: ZOLPIDEM TARTRATE 5 MG TABLET PO PRN (19:00)
[2019-05-18] MEDS ORDERED: Z GUARD REMEDY 2 OZ OINT TP PRN (19:00)
--- NOTE | 2019-05-18 19:21 | NUR ---
REPORT GIVEN TO MARLINE PURDY FOR ICU 254. ADMITTING NIESHAMA
--- NOTE | 2019-05-18 19:30 | NUR ---
[facility]
--- NOTE | 2019-05-18 20:29 | NUR ---
CENTRIFUGE OPERATOR. ADMISSION. RECEIVED THE PT FROM ER [facility]IA [facility]. PT IS AWAKE, ALERT, FOLLOW COMMANDS. SENIOR DATABASE ADMINISTRATOR SHOWING NORMAL SINUS RHYTHM.IV RT HAND 20GLT HAND AV FISTULA. OXYGEN 2L VIA NASAL CANNULA. SAT 98%. NO ACUTE DISTRESS HOB ELEVATED. HEMO DIALYSIS STARTED. AFEBRILE. LOWER EXTREMITY 2 + EDEMA. AND DISCOLORATION. WILL CONTINUE TO MONITOR VITALS.
[2019-05-18] MEDS: BLOOD SUGAR DIAGNOSTIC 1 EACH STRIP IN SCH (21:00)
[2019-05-19] VITALS (26 sets, daily range): BP systolic 103–154; BP diastolic 50–118
[2019-05-19] MEDS: HEPARIN SODIUM, PORCINE 5000 UNITS/1 ML VIAL SQ SCH ×3 (00:05→21:56)
--- NOTE | 2019-05-19 00:15 | NUR ---
DEGREASING SOLUTION RECLAIMER. HEPARIN 2100 NOT GIVEN. PER DIALYSIS NURSE HEPARIN GIVE 2HOUS AFTER DIALYSIS.
[2019-05-19] MEDS: BLOOD SUGAR DIAGNOSTIC 1 EACH STRIP IN SCH ×6 (01:44→22:02)
--- NOTE | 2019-05-19 03:38 | NUR ---
curriculum and instruction specialist. am care, oral care, bed bath given. linen changed. remaining same ivfluids running. hob elevated, pt on room air. sat 98%. no acute distress noted, manager cardiac cath showing nsr. iv fluid d51/2ns 45ml/h. hob elevated, turn and reposition q2h. will continue to monitor vitals.
[2019-05-19 04:26] LABS: BASOPHILS % (AUTO) 0.7 % (0.0-2.0); HEMATOCRIT 34 % (39-51); LYMPHOCYTES # (AUTO) 0.8 /CMM (0.8-4.8); LYMPHOCYTES % (AUTO) 12.3 % (20.0-44.0); MEAN CORPUSCULAR HGB CONC 33 g/dl (31.0-36.0); MEAN CORPUSCULAR VOLUME 89 fL (80-96); MONOCYTES # (AUTO) 0.5 /CMM (0.1-1.30); MONOCYTES % (AUTO) 7.8 % (2.0-12.0); NEUTROPHILS # (AUTO) 4.9 /CMM (1.8-8.9); NEUTROPHILS % (AUTO) 74.2 % (43.0-81.0); PLATELET COUNT (AUTO) 181 /CMM (150-450); RED BLOOD CELL COUNT(AUTO) 3.81 MIL/uL (4.5-6.0); WHITE BLOOD COUNT (AUTO) 6.6 K/uL (4.3-11.0)
[2019-05-19 04:42] LABS: CALCIUM, SERUM 7.7 mg/dL (8.5-10.1); MAGNESIUM 2.5 mg/dL (1.8-2.4); PHOSPHORUS 7.9 mg/dL (2.5-4.9); POTASSIUM 5.1 mmol/L (3.5-5.1)
[2019-05-19 04:44] LABS: CREATININE 10.5 mg/dL (0.6-1.3)
[2019-05-19 05:07] LABS: THYROID STIMULATING HORMONE 3.366 uIU/mL (0.358-3.74)
--- NOTE | 2019-05-19 08:42 | NUR ---
received pt from manager shift, a/o x4, SR, on 2L 02 sat well, HD pt, v/s stable, no pain, tolerates diet, uses bedside commode, pt turns and repositions by himself.
[2019-05-19] MEDS ORDERED: DEXTROSE 50%-WATER 50 ML DISP.SYRIN IV PRN (12:00)
--- NOTE | 2019-05-19 16:06 | NUR ---
pt is resting in the bed, a/o x4, SR, on 2L 02 sat well, tolerates diet, HD patient, v/s stable, no pain, pt cleaned and changed.
--- NOTE | 2019-05-19 19:30 | NUR ---
FIGURE REFINISHER AND REPAIRER: RECEIVED PT SITTING UP ON BED. A/O X3. ON 2L 02 VIA NC WT NO ACUTE DISTRESS, NO C/O PAIN. SR ON RN VASCULAR. BP WNL. AFEBRILE. POSITIVE BRUIT AND THRILL ON GEOFF AV FISTULA. RAC IV SITE SALINE LOCKED WT NO S/S OF INFILTRATION. BED IN LOCKED AND IN LOWEST POSITION. CALL LIGHT KEPT WITHIN REACH. WILL CONTINUE TO MONITOR.
[2019-05-19] MEDS: INSULIN REGULAR, HUMAN 100 UNIT/ML 3 ML VIAL SQ PRN (22:06)
[2019-05-20] VITALS (24 sets, daily range): BP systolic 94–153; BP diastolic 52–86
[2019-05-20 04:50] LABS: BASOPHILS # (AUTO) 0.1 /CMM (0.0-0.2); BASOPHILS % (AUTO) 0.9 % (0.0-2.0); EOSINOPHILS % (AUTO) 6.8 % (0.0-6.0); HEMATOCRIT 36 % (39-51); HEMOGLOBIN 11.4 g/dL (13.5-17.5); LYMPHOCYTES # (AUTO) 0.9 /CMM (0.8-4.8); LYMPHOCYTES % (AUTO) 14.2 % (20.0-44.0); MEAN CORPUSCULAR HGB CONC 32 g/dl (31.0-36.0); MEAN CORPUSCULAR VOLUME 90 fL (80-96); MONOCYTES # (AUTO) 0.5 /CMM (0.1-1.30); NEUTROPHILS # (AUTO) 4.5 /CMM (1.8-8.9); NEUTROPHILS % (AUTO) 70.1 % (43.0-81.0); PLATELET COUNT (AUTO) 188 /CMM (150-450); RED BLOOD CELL COUNT(AUTO) 3.98 MIL/uL (4.5-6.0); WHITE BLOOD COUNT (AUTO) 6.4 K/uL (4.3-11.0)
[2019-05-20 05:10] LABS: CALCIUM, SERUM 7.2 mg/dL (8.5-10.1); MAGNESIUM 2.8 mg/dL (1.8-2.4)
[2019-05-20 05:20] LABS: CREATININE 12.3 mg/dL (0.6-1.3); PHOSPHORUS 10.7 mg/dL (2.5-4.9); POTASSIUM 6.3 mmol/L (3.5-5.1)
--- NOTE | 2019-05-20 06:30 | NUR ---
PROGRAM CONSULTANT: CHARGE NURSE ED CALLED HD NURSE BARAJAS AND INFORMED HIM THAT PT NEEDS HD JENNIFER D/T CRITICAL LAB RESULTS. HD RN SAID HE WILL BE HERE JENNIFER. NO SIGNIFICANT FELICIA DURING THE SHIFT. REMAINED A/O X3. NO ACUTE DISTRESS. NO C/O PAIN. ALL NEEDS MET. WILL ENDORSE TO DAY SHIFT FOR CONTINUITY OF CARE.
--- NOTE | 2019-05-20 07:15 | NUR ---
ICT SECURITY SPECIALIST INITIAL NOTES PT RECEIVED IN STABLE CONDITION. NO SOB OR ACUTE SIGNS OF DISTRESS NOTED. BREATHING IS EVEN AND UNLABORED. PT ON 2 L VIA NC AND SATING WELL. HE DENIES ANY PAIN. RIGHT AC PERIPHERAL IV NOTED TO BE PATENT AND INTACT. NO REDNESS OR SIGNS OF INFILTRATION NOTED. LEFT ARM AV FISTULA NOTED. BRUIT AND THRILL ASSESSED. PT SCHEDULED FOR HD. BED IN LOW LOCKED POSITION, SIDE RAILS UP X2, CALL LIGHT WITHIN REACH. WILL CONTINUE TO MONITOR
[2019-05-20] MEDS: BLOOD SUGAR DIAGNOSTIC 1 EACH STRIP IN SCH ×4 (08:24→21:49)
[2019-05-20] MEDS: HEPARIN SODIUM, PORCINE 5000 UNITS/1 ML VIAL SQ SCH ×2 (08:24→21:57)
[2019-05-20] MEDS: METOPROLOL TARTRATE 25 MG TABLET PO SCH ×2 (09:29→17:39)
[2019-05-20] MEDS: SEVELAMER CARBONATE 800 MG TABLET PO SCH ×3 (10:09→17:38)
[2019-05-20] MEDS: FAMOTIDINE (20 MG) 20 MG TABLET PO SCH (10:10)
[2019-05-20] MEDS: ASPIRIN 81 MG TAB.CHEW PO SCH (10:10)
[2019-05-20] MEDS: TAMSULOSIN 0.4 MG CAP.SR.24H PO SCH (10:10)
[2019-05-20] MEDS: NICOTINE PATCH (21MG) 21 MG PATCH.TD24 TD SCH (10:26)
--- NOTE | 2019-05-20 11:00 | NUR ---
S/P HD 1/5 L REMOVED. VSS
[2019-05-20] MEDS: INSULIN REGULAR, HUMAN 100 UNIT/ML 3 ML VIAL SQ PRN ×2 (12:39→17:49)
--- NOTE | 2019-05-20 19:02 | NUR ---
RECORD TABULATING CLERK CLOSING NOTES PT REMAINS STABLE. ALL NEEDS ATTENDED TO AND MET. DUE MEDS GIVEN. VSS REMAIN STABLE THROUGHOUT SHIFT. ENDORSED TO NIGHTSHIFT RN FOR FELICIA
--- NOTE | 2019-05-20 19:30 | NUR ---
AUTOMOBILE SERVICE STATION MECHANIC INITIAL SHIFT NOTES RECEIVED PATIENT IN BED, AWAKE, ALERT AND ORIENTED X3, ABLE TO VERBALIZE NEEDS. BREATHING EVEN AND NONLABORED, TOLERATING ROOM AIR WELL, FREE FROM ANY S/S OF RESPIRATORY DISTRESS. BEDSIDE TELE MONITOR READS SINUS RHYTHM WITH BBB, HR 64 BPM AT THIS TIME. RIGHT AC IV PATENT AND INTACT, FLUSHED WITH NS, FREE FROM ANY SIGNS AND SYMPTOMS OF INFILTRATION OR PHLEBITIS. LEFT FOREARM AV SHUNT WITH + BRUIT/+THRILL, NO BLEEDING NOTED AT SITE. CALL LIGHT LEFT WITHIN EASY REACH, BED IN LOWEST AND LOCKED POSITION. WILL CONTINUE TO CLOSELY MONITOR
[2019-05-21] VITALS (13 sets, daily range): BP systolic 106–175; BP diastolic 52–78
--- NOTE | 2019-05-21 | NUR ---
CLOTH ROLL WINDER NOTES BREATHING REMAINS EVEN AND NONLABORED, TOLERATING O2 VIA NC WELL, SPO2 WNL, NO RESPIRATORY DISTRESS NOTED. WILL CONTINUE TO CLOSELY MONITOR
[2019-05-21 04:42] LABS: BASOPHILS % (AUTO) 0.7 % (0.0-2.0); EOSINOPHILS % (AUTO) 7.5 % (0.0-6.0); HEMATOCRIT 33 % (39-51); HEMOGLOBIN 10.8 g/dL (13.5-17.5); LYMPHOCYTES # (AUTO) 0.7 /CMM (0.8-4.8); LYMPHOCYTES % (AUTO) 10.5 % (20.0-44.0); MEAN CORPUSCULAR HGB CONC 33 g/dl (31.0-36.0); MEAN CORPUSCULAR VOLUME 89 fL (80-96); MONOCYTES # (AUTO) 0.5 /CMM (0.1-1.30); MONOCYTES % (AUTO) 7.5 % (2.0-12.0); NEUTROPHILS # (AUTO) 4.9 /CMM (1.8-8.9); NEUTROPHILS % (AUTO) 73.8 % (43.0-81.0); PLATELET COUNT (AUTO) 178 /CMM (150-450); RED BLOOD CELL COUNT(AUTO) 3.68 MIL/uL (4.5-6.0); WHITE BLOOD COUNT (AUTO) 6.6 K/uL (4.3-11.0)
[2019-05-21 04:56] LABS: ALBUMIN 3.2 g/dL (3.4-5.0); BILIRUBIN,TOTAL 0.3 mg/dL (0.2-1.0); CALCIUM, SERUM 7.2 mg/dL (8.5-10.1); MAGNESIUM 2.6 mg/dL (1.8-2.4); TOTAL PROTEIN, SERUM 6.3 g/dL (6.4-8.2)
[2019-05-21 04:59] LABS: CREATININE 10.9 mg/dL (0.6-1.3)
[2019-05-21 05:00] LABS: PHOSPHORUS 8.8 mg/dL (2.5-4.9)
--- NOTE | 2019-05-21 07:00 | NUR ---
ICU RM CLOSING NOTES PATIENT RESTING IN BED, APPEAR COMFORTABLE, ALL NEEDS MET THROUGHOUT THE SHIFT, NO ACUTE CHANGES NOTED. WILL ENDORSE THE PATIENT TO THE AM SHIFT NURSE FOR CONTINUITY OF CARE
--- NOTE | 2019-05-21 07:10 | NUR ---
PIANO ASSEMBLER INITIAL NOTES: Rec'd pt on bed, not in any distress, A/O x 4. On NC at 2lpm, no SOB. SR/SB on telemonitor. R AC G20, SL, flushing well w/ no s/sx of infection/infiltration noted. LFA AVF w/ + thrill/bruit. Safety precaution in place w/ bed in lowest & locked pos. Call light placed w/in reach. Will cont to monitor & attend pt needs.
[2019-05-21] MEDS: BLOOD SUGAR DIAGNOSTIC 1 EACH STRIP IN SCH ×4 (07:25→22:31)
[2019-05-21] MEDS: LEVOTHYROXINE SODIUM 50 MCG TABLET PO SCH (07:27)
[2019-05-21] MEDS: INSULIN REGULAR, HUMAN 100 UNIT/ML 3 ML VIAL SQ PRN ×4 (07:29→22:33)
--- NOTE | 2019-05-21 08:03 | NUR ---
Pt seen & examined by Dr. Frost, per MD may change diet to 75 gms carbs & 60 gms protein.
[2019-05-21] MEDS: FAMOTIDINE (20 MG) 20 MG TABLET PO SCH (08:13)
[2019-05-21] MEDS: SEVELAMER CARBONATE 800 MG TABLET PO SCH ×3 (08:13→18:00)
[2019-05-21] MEDS: TAMSULOSIN 0.4 MG CAP.SR.24H PO SCH (08:13)
[2019-05-21] MEDS: ASPIRIN 81 MG TAB.CHEW PO SCH (08:13)
[2019-05-21] MEDS: HEPARIN SODIUM, PORCINE 5000 UNITS/1 ML VIAL SQ SCH ×2 (08:14→20:35)
[2019-05-21] MEDS: NICOTINE PATCH (21MG) 21 MG PATCH.TD24 TD SCH (08:14)
[2019-05-21] MEDS: METOPROLOL TARTRATE 25 MG TABLET PO SCH ×3 (08:14→17:00)
--- NOTE | 2019-05-21 09:50 | NUR ---
CHARRERPERFUME AND TOILET WATER MAKER NOTES: Pt transferred to Tele as ordered in rm 113/1. Pt transferred via WC via ACLS protocol accompanied by RN, not in any distress w/ no c/o pain or SOB. IV line access kept patent & intact w/ no s/sx of infection/infiltration noted. All belongings (including valuables & meds) sent w/ pt. Skin remains intact. Per Annie HERRERA RN, pt will have HD today at 1pm. No concerns/issues identified during transfer. Pt was also evaluated by P.T. Carlotta FELICIA to Dominik HORAN.
--- NOTE | 2019-05-21 10:00 | NUR ---
RN OPENING NOTES PATIENT WAS TRANSFERRED FROM ICU TO [facility] VIA WHEELCHAIR, REPORT RECEIVED FROM MARLINE GARVIN. PATIENT IS AOX4, VERBAL, AND AMBULATORY. HE IS CONNECTED TO THE TELE MONITOR, SR. HE IS ON 2L OF OYGEN VIA NC, TOLERATING WELL. HE HAS A 20 G IV ON R AC, PATENT AND INTACT. SKIN IS INTACT. SAFETY MEASURES HAVE BEEN IMPLEMENTED, CALL LIGHT IS WITHIN REACH, BED IS IN LOWEST AND LOCKED POSITION, SIDE RAILS UP X2, WILL CONTINUE TO MONITOR FOR ANY CHANGES
--- NOTE | 2019-05-21 19:14 | NUR ---
1700 METOPROLOL AND 1800 SEVELAMIR HAS BEEN HELD BECAUSE PATIENT IS BEING DIALYZED.
--- NOTE | 2019-05-21 19:15 | NUR ---
BIOFUELS PLANT OPERATIONS ENGINEER OPENING NOTES PATIENT IN BED, AWAKE, A/OX4, CURRENTLY BEING DIALYZED, HD NURSE AT BEDSIDE. ON TELE MONITOR SR WITH HR 70S. HE DENIES ANY PAIN OR DISCOMFORT AT THIS TIME. ON OXYGEN 2L VIA NC, TOLERATING WELL, NO SOB OR RESPIRATORY DISTRESS NOTED. IV SITE RIGHT AC 20G FLUSHING AND PATENT, SITE C/D/I, S/L. LEFT FOREARM AV FISTULA CURRENTLY BEING USED FOR HD, SITE C/D/I. SAFETY MEASURES IN PLACE; CALL LIGHT WITHIN REACH, BED IS IN LOWEST AND LOCKED POSITION, SIDE RAILS UP X2. WILL CONT TO MONITOR CLOSELY.
--- NOTE | 2019-05-21 19:15 | NUR ---
RN CLOSING NOTES PATIENT IS CURRENTLY BEING DIALYZED. HE DENIES ANY PAIN OR DISCOMFORT AT THIS TIME . PT NEEDS HAVE BEEN MET, HE IS STABLE. 1700 AND 1800 MEDS HELD DUE TO HD. SAFETY MEASURES HAVE BEEN IMPLEMENTED, CALL LIGHT IS WITHIN REACH, BED IS IN LOWEST AND LOCKED POSITION, SIDE RAILS UP X2, PT HAS BEEN ENDORSED TO NIGHTSHIFT RN FOR CONTINUAL CARE.
[2019-05-22] VITALS: BP 151/76
[2019-05-22 04:00] VITALS: BP_SYST 151; BP_SYST 153; BP_DIAS 73; BP_DIAS 77
[2019-05-22 06:48] LABS: BASOPHILS % (AUTO) 0.6 % (0.0-2.0); EOSINOPHILS % (AUTO) 8.6 % (0.0-6.0); HEMATOCRIT 33 % (39-51); LYMPHOCYTES # (AUTO) 0.5 /CMM (0.8-4.8); LYMPHOCYTES % (AUTO) 8.5 % (20.0-44.0); MEAN CORPUSCULAR HGB CONC 33 g/dl (31.0-36.0); MEAN CORPUSCULAR VOLUME 88 fL (80-96); MONOCYTES # (AUTO) 0.6 /CMM (0.1-1.30); MONOCYTES % (AUTO) 8.9 % (2.0-12.0); NEUTROPHILS # (AUTO) 4.7 /CMM (1.8-8.9); NEUTROPHILS % (AUTO) 73.4 % (43.0-81.0); PLATELET COUNT (AUTO) 161 /CMM (150-450); RED BLOOD CELL COUNT(AUTO) 3.78 MIL/uL (4.5-6.0); WHITE BLOOD COUNT (AUTO) 6.4 K/uL (4.3-11.0)
[2019-05-22 07:00] LABS: CALCIUM, SERUM 7.4 mg/dL (8.5-10.1); MAGNESIUM 2.5 mg/dL (1.8-2.4); PHOSPHORUS 7.8 mg/dL (2.5-4.9); POTASSIUM 5.5 mmol/L (3.5-5.1)
[2019-05-22 07:02] LABS: CREATININE 10.2 mg/dL (0.6-1.3)
--- NOTE | 2019-05-22 07:21 | NUR ---
SENIOR ADMINISTRATOR SUPPORT CLOSING NOTES PATIENT IN BED, SLEEPING BUT EASY TO AROUSE, A/OX4. NO ACUTE CHANGES THROUGHOUT SHIFT. ON TELE MONITOR SR WITH HR 70S. DENIES ANY PAIN OR DISCOMFORT AT THE MOMENT. ON OXYGEN 2L VIA NC, TOLERATING WELL, NO SOB OR RESPIRATORY DISTRESS NOTED. IV SITE RIGHT AC 20G FLUSHING AND PATENT, SITE C/D/I, S/L. LEFT FOREARM AV FISTULA CURRENTLY BEING USED FOR HD, SITE C/D/I. SAFETY MEASURES IN MAINTAINED; CALL LIGHT WITHIN REACH, BED IS IN LOWEST AND LOCKED POSITION, SIDE RAILS UP X2. ALL MD ORDERS ATTENDED, ALL NEEDS ANTICIPATED AND MET. ENDORSED TO AM RN FOR FELICIA.
--- NOTE | 2019-05-22 07:30 | NUR ---
RN NOTES RECEIVED PATIENT SITTING AT THE BED, A/A/O X4, ABLE TO MAKE NEEDS KNOWN, WITH NASAL CANNULA IN PLACE OXYGEN AT 2 LPM, NO SIGN OF SHORTNESS OF BREATH NOTED, SATING FINE, SINUS RHYTHM ON THE MONITOR WITH HR ON THE 70'. NO COMPLAINTS OF PAIN OF ANY KIND. IV ACCESS ON RAC IN PLACE, PATENT ON FLUSHING, DRESSING IN PLACE, SL. PATIENT ENCOURAGE TO VERBALIZE FEELING S AND CONCERNS, SAFETY MEASURES OBSERVED AND MAINTAINED, CALL LIGHT PLACED WITHIN REACH, WILL CONTINUE TO MONITOR PATIENT CLOSELY
[2019-05-22 08:00] VITALS: BP 151/73
[2019-05-22] MEDS: BLOOD SUGAR DIAGNOSTIC 1 EACH STRIP IN SCH ×3 (08:37→17:10)
[2019-05-22] MEDS: TAMSULOSIN 0.4 MG CAP.SR.24H PO SCH (08:37)
[2019-05-22] MEDS: SEVELAMER CARBONATE 800 MG TABLET PO SCH ×3 (08:37→17:10)
[2019-05-22] MEDS: FAMOTIDINE (20 MG) 20 MG TABLET PO SCH (08:37)
[2019-05-22] MEDS: METOPROLOL TARTRATE 25 MG TABLET PO SCH ×2 (08:38→17:10)
[2019-05-22] MEDS: NICOTINE PATCH (21MG) 21 MG PATCH.TD24 TD SCH (08:38)
[2019-05-22] MEDS: LEVOTHYROXINE SODIUM 50 MCG TABLET PO SCH (08:38)
[2019-05-22] MEDS: ASPIRIN 81 MG TAB.CHEW PO SCH (08:38)
[2019-05-22] MEDS: HEPARIN SODIUM, PORCINE 5000 UNITS/1 ML VIAL SQ SCH (08:40)
--- NOTE | 2019-05-22 10:00 | NUR ---
RN NOTES PATIENT STARTED WITH DIALYSIS TREATMENT
--- NOTE | 2019-05-22 13:00 | NUR ---
RN NOTES PATIENT DONE WITH DIALYSIS TREATMENT. ABLE TO TOLERATE PROCEDURE WELL. 1.2 LITER OUT. NOT ON ANY FORM OF DISTRESS
[2019-05-22 16:00] VITALS: BP 164/71
[2019-05-22] MEDS: INSULIN REGULAR, HUMAN 100 UNIT/ML 3 ML VIAL SQ PRN (17:11)
--- NOTE | 2019-05-22 19:10 | NUR ---
RN NOTES ENDORSED PATIENT FOR CONTINUITY OF CARE. NOT ON ANY FORM OF DISTRESS. ALL NURSING NEEDS ATTENDED AND MET. SAFETY MEASURES IN PLACE AT ALL TIMES. CALL LIGHT WITHIN REACH
--- NOTE | 2019-05-22 19:34 | NUR ---
RN NOTE PATIENT LEFT VIA GURNEY IN STABLE CONDITION,VITAL SIGNS STABLE, NO RESPIRATORY DISTRESS NOTED, ON ROOM AIR SPO2 95%, BELONGING'S LIST SIGNED AND IN THE CHART, ALERT/ORIENTED X 4, SKIN IS INTACT, LEFT FOREARM FISTULA INTACT, RAC 20 GAUGE REMOVED, NO S/S OF INFECTION/INFILTRATION NOTED, TRANSFERRED WITH ALL SAFETY MEASURES Addendum: 05/22/19 at 2022 by XAVIER AWAD RN PATIENT LEFT TO [facility], REPORT WAS PROVIDED TO SHYAM BY JUANJOSE JHA
[2019-05-22 19:42] VITALS: BP 144/64
== END 2019-05-22 20:31 | DRG 640 ==
LOC: ER 16:50 → ICU 19:23 → TELE1 05-21 09:36 → MEDSG1 05-22 11:17
PROVIDERS: ADMIT Student in an Organized Health Care Education/Training Program; ATTEND Hospitalist
PROC: 5A1D70Z Performance of Urinary Filtration, Intermittent, Less than 6 Hours Per Day (ICD-10-PCS; principal; 2019-05-18)
DX: E87.5 Hyperkalemia (principal); N18.6 End stage renal disease; I13.2 Hypertensive heart and chronic kidney disease with heart failure and with stage 5 chronic kidney disease, or end stage renal disease; E44.1 Mild protein-calorie malnutrition; Z68.41 Body mass index [BMI] 40.0-44.9, adult; N25.81 Secondary hyperparathyroidism of renal origin; Z99.2 Dependence on renal dialysis; E11.22 Type 2 diabetes mellitus with diabetic chronic kidney disease; E11.649 Type 2 diabetes mellitus with hypoglycemia without coma; E83.41 Hypermagnesemia; E66.01 Morbid (severe) obesity due to excess calories; E03.9 Hypothyroidism, unspecified; D64.9 Anemia, unspecified; E83.39 Other disorders of phosphorus metabolism; I50.9 Heart failure, unspecified; M48.02 Spinal stenosis, cervical region; N40.0 Benign prostatic hyperplasia without lower urinary tract symptoms; Z79.84 Long term (current) use of oral hypoglycemic drugs; Z79.82 Long term (current) use of aspirin; Z79.899 Other long term (current) drug therapy; K52.9 Noninfective gastroenteritis and colitis, unspecified; D63.8 Anemia in other chronic diseases classified elsewhere; Z72.0 Tobacco use
CPT/HCPCS: 36415; 36600; 71045-TC; 80048-TC; 80053-TC; 80061-TC; 80076-TC; 82803-TC; 82962-TC; 83735-TC; 84100-TC; 84443-TC; 84484-TC; 85025-TC; 86706; 87081-TC; 87340; 90935-TC; 94799-TC; 97116-TC; 97530-TC; A4349; G0378; J0610; J1644; J1815; J2405; J3490

== ENCOUNTER 2019-11-08 12:36 | Emergency (ER) | payer MEDICARE, OTHER ==
[~2019-11-08] VITALS: Ht 170.2 cm; Wt 117.9 kg
[~2019-11-08 12:36] MED LIST changes: -ATOR40TA PO; -BUME1TAB9 PO; -CYCL30DR EACHEYE; -FERR325T23 PO; -FURO40TA5 PO; -GLIP5TAB13 PO; -HYDR-4076 PO; -ONDA4TAB10 PO; -PARO10TA86 PO; +SERT100T PO
--- NOTE | 2019-11-08 12:41 | NUR ---
PT [facility] "felt weak after tried to drink Glucerna- got nauseous. Dizzy" PT IS AAOX3, NOT IN RESPIRATORY DISTRESS, HOOKED TO SHAREHOLDER, KEPT RESTED AND COMFORTABLE, WILL CONTINUE TO MONITOR.
--- NOTE | 2019-11-08 12:45 | NUR ---
IV LINE ESTABLISHED, BLOOD DRAWN AND SENT TO LAB.
[2019-11-08] MEDS ORDERED: TAMS-12 PO (12:57)
[2019-11-08] MEDS ORDERED: MIDO5TAB4 PO (12:58)
--- NOTE | 2019-11-08 13:00 | NUR ---
PT IS WHEELED TO CT SCAN VIA [facility].
[2019-11-08] MEDS ORDERED: FERR325T23 PO (13:02)
[2019-11-08] MEDS ORDERED: TRAZ-182 PO (13:02)
[2019-11-08] MEDS ORDERED: NATE60TA4 PO (13:02)
[2019-11-08] MEDS ORDERED: CARV6.252 PO (13:02)
[2019-11-08] MEDS ORDERED: METF-440 PO (13:02)
[2019-11-08] MEDS ORDERED: GLIP5TAB13 PO (13:02)
[2019-11-08] MEDS ORDERED: ATOR40TA PO (13:02)
[2019-11-08] MEDS ORDERED: ONDA-97 PO (13:04)
[2019-11-08] MEDS ORDERED: MECL-182 PO (13:04)
[2019-11-08] MEDS ORDERED: CALC667C6 PO (13:04)
[2019-11-08] MEDS ORDERED: FLUD0.1T PO (13:04)
[2019-11-08 13:05] LABS: BASOPHILS # (AUTO) 0.1 /CMM (0.0-0.2); BASOPHILS % (AUTO) 0.9 % (0.0-2.0); EOSINOPHILS % (AUTO) 2.4 % (0.0-6.0); HEMATOCRIT 33 % (39-51); HEMOGLOBIN 10.5 g/dL (13.5-17.5); LYMPHOCYTES # (AUTO) 0.5 /CMM (0.8-4.8); LYMPHOCYTES % (AUTO) 7.4 % (20.0-44.0); MEAN CORPUSCULAR HGB CONC 32 g/dl (31.0-36.0); MEAN CORPUSCULAR VOLUME 86 fL (80-96); MONOCYTES # (AUTO) 0.4 /CMM (0.1-1.30); NEUTROPHILS # (AUTO) 5.9 /CMM (1.8-8.9); NEUTROPHILS % (AUTO) 83.3 % (43.0-81.0); PLATELET COUNT (AUTO) 263 /CMM (150-450); RED BLOOD CELL COUNT(AUTO) 3.79 MIL/uL (4.5-6.0); WHITE BLOOD COUNT (AUTO) 7.1 K/uL (4.3-11.0)
[2019-11-08 13:13] LABS: CALCIUM, SERUM 9.2 mg/dL (8.5-10.1); CREATININE 6.8 mg/dL (0.6-1.3); POTASSIUM 4.4 mmol/L (3.5-5.1)
[2019-11-08] MEDS ORDERED: ONDANSETRON HCL/PF 4 MG/2 ML VIAL ONE (13:18)
[2019-11-08 13:24] LABS: ALBUMIN 3.5 g/dL (3.4-5.0); BILIRUBIN,DIRECT 0.1 mg/dL (0.0-0.2); BILIRUBIN,TOTAL 0.4 mg/dL (0.2-1.0); TOTAL PROTEIN, SERUM 7.3 g/dL (6.4-8.2)
[2019-11-08] MEDS ORDERED: ONDANSETRON HCL/PF 4 MG/2 ML VIAL IVP ONE (13:30)
--- NOTE | 2019-11-08 13:37 | NUR ---
MARYELLEN PLATT PT SISTER [phone]
--- NOTE | 2019-11-08 13:50 | NUR ---
ETA [id number] PTFE [id number]
--- NOTE | 2019-11-08 14:13 | NUR ---
REPORT GIVEN TO EMS FOR PT TRANSFER BACK TO [facility].
--- NOTE | 2019-11-08 14:13 | NUR ---
IV removed. Catheter intact and site benign. Pressure and 4x4 applied to site. No bleeding noted. Patient discharged to home in stable condition. Written and verbal after care instructions given. Patient verbalizes understanding of instruction.
[2019-11-08 14:16] VITALS: BP 154/80
== END 2019-11-08 14:17 | disposition home or self-care (01) ==
LOC: ER 12:42
DX: R53.1 Weakness (principal); I44.4 Left anterior fascicular block; R41.82 Altered mental status, unspecified; E11.22 Type 2 diabetes mellitus with diabetic chronic kidney disease; I12.0 Hypertensive chronic kidney disease with stage 5 chronic kidney disease or end stage renal disease; N18.6 End stage renal disease; G89.29 Other chronic pain; M54.5 Low back pain; Z99.2 Dependence on renal dialysis; Z60.2 Problems related to living alone; Z79.899 Other long term (current) drug therapy; Z79.82 Long term (current) use of aspirin
CPT/HCPCS: 36415; 70450; 71045; 80048; 80076; 82962; 84484; 85025; 85730; 93005; 96374; 99285; J2405

== ENCOUNTER 2020-03-06 18:07 | Emergency (ER) | payer MEDICARE, OTHER ==
[~2020-03-06] VITALS: Ht 170.2 cm; Wt 120.2 kg
[~2020-03-06 18:07] MED LIST changes: +ATOR40TA PO; +CALC667C6 PO; +CARV6.252 PO; +FERR325T23 PO; +FLUD0.1T PO; +GLIP5TAB13 PO; +MECL-182 PO; +METF-440 PO; -METO25TA20 PO; +MIDO5TAB4 PO; +NATE60TA4 PO; +ONDA-97 PO; +TRAZ-182 PO
[2020-03-06] MEDS: IV NS 0.9% 500 ML BAG IV ONE (18:30)
[2020-03-06] MEDS: ONDANSETRON HCL/PF 4 MG/2 ML VIAL IVP ONE (18:30)
[2020-03-06] MEDS: PANTOPRAZOLE 40 MG VIAL IV ONE (18:30)
[2020-03-06] MEDS ORDERED: PANTOPRAZOLE 40 MG VIAL ONE (18:41)
[2020-03-06] MEDS ORDERED: ONDANSETRON HCL/PF 4 MG/2 ML VIAL ONE (18:41)
[2020-03-06 18:44] LABS: BASOPHILS # (AUTO) 0.1 /CMM (0.0-0.2); BASOPHILS % (AUTO) 1.1 % (0.0-2.0); EOSINOPHILS % (AUTO) 5.6 % (0.0-6.0); HEMATOCRIT 35 % (39-51); HEMOGLOBIN 11.1 g/dL (13.5-17.5); LYMPHOCYTES # (AUTO) 0.6 /CMM (0.8-4.8); LYMPHOCYTES % (AUTO) 7.6 % (20.0-44.0); MEAN CORPUSCULAR HGB CONC 32 g/dl (31.0-36.0); MEAN CORPUSCULAR VOLUME 85 fL (80-96); MONOCYTES # (AUTO) 0.5 /CMM (0.1-1.30); MONOCYTES % (AUTO) 7.1 % (2.0-12.0); NEUTROPHILS # (AUTO) 5.9 /CMM (1.8-8.9); NEUTROPHILS % (AUTO) 78.6 % (43.0-81.0); PLATELET COUNT (AUTO) 201 /CMM (150-450); WHITE BLOOD COUNT (AUTO) 7.5 K/uL (4.3-11.0)
--- NOTE | 2020-03-06 18:51 | NUR ---
[id number] FRM HOME, C/O DIZZINESS, ABD PAIN,VOMITING "BRIGHT RED BLOOD." UNDERWENT DIALYSIS TODAY. ON ROOM AIR, BREATHING EVENLY AND UNLABORED. CONNECTED TO THE MONITOR AND PULSE OX. KEPT COMFORTABLE, WILL CONTINUE TO MONITOR ACCORDINGLY.
[2020-03-06 18:57] LABS: ALBUMIN 3.6 g/dL (3.4-5.0); BILIRUBIN,DIRECT 0.1 mg/dL (0.0-0.2); BILIRUBIN,TOTAL 0.3 mg/dL (0.2-1.0); CALCIUM, SERUM 9.2 mg/dL (8.5-10.1); CREATININE 5.7 mg/dL (0.6-1.3); POTASSIUM 4.5 mmol/L (3.5-5.1); TOTAL PROTEIN, SERUM 6.9 g/dL (6.4-8.2)
--- NOTE | 2020-03-06 19:31 | NUR ---
REPORT GIVEN TO SANDRA HORAN FOR FELICIA
--- NOTE | 2020-03-06 20:44 | NUR ---
Patient discharged to home in stable condition. Written and verbal after care instructions given. Patient verbalizes understanding of instruction. IV removed. Catheter intact and site benign. Pressure and 4x4 applied to site. No bleeding noted.
[2020-03-06 21:01] VITALS: BP 120/75
== END 2020-03-06 21:02 | disposition home or self-care (01) ==
LOC: ER 18:09
DX: K06.8 Other specified disorders of gingiva and edentulous alveolar ridge (principal); R10.13 Epigastric pain; E11.22 Type 2 diabetes mellitus with diabetic chronic kidney disease; I13.2 Hypertensive heart and chronic kidney disease with heart failure and with stage 5 chronic kidney disease, or end stage renal disease; N18.6 End stage renal disease; R42 Dizziness and giddiness; E78.5 Hyperlipidemia, unspecified; M54.5 Low back pain; G89.29 Other chronic pain; E03.9 Hypothyroidism, unspecified; E66.8 Other obesity; Z68.41 Body mass index [BMI] 40.0-44.9, adult; Z99.2 Dependence on renal dialysis; Z60.2 Problems related to living alone; Z79.82 Long term (current) use of aspirin; Z79.899 Other long term (current) drug therapy
CPT/HCPCS: 36415; 71045; 80048; 80076; 83690; 85025; 85610; 86850; 96374; 96375; 99284; C9113; J2405; J7040

== ENCOUNTER 2020-03-20 07:58 | Inpatient (IN) | payer MEDICARE, OTHER ==
[~2020-03-20] VITALS: Ht 167.6 cm; Wt 111.1 kg
--- NOTE | 2020-03-20 08:02 | NUR ---
[email or web address] home c/o ble weakness, low bg x today. pt due for dialysis today, to ER bed 9, noted with LFA AV fistula, hooked to monitor, changed to hosp gown, warm blanket provided, patient AAO x 4, breathing even and unlabored, Dr Tamayo at bedside.
[2020-03-20] MEDS ORDERED: DEXTROSE 50%-WATER 50 ML DISP.SYRIN ONE (08:18)
[2020-03-20] MEDS ORDERED: DEXTROSE 50%-WATER 50 ML DISP.SYRIN IVP ONE (08:30)
[2020-03-20 08:33] LABS: BASOPHILS # (AUTO) 0.1 /CMM (0.0-0.2); BASOPHILS % (AUTO) 0.6 % (0.0-2.0); EOSINOPHILS % (AUTO) 3.7 % (0.0-6.0); HEMATOCRIT 32 % (39-51); HEMOGLOBIN 10.1 g/dL (13.5-17.5); LYMPHOCYTES # (AUTO) 0.5 /CMM (0.8-4.8); LYMPHOCYTES % (AUTO) 4.1 % (20.0-44.0); MEAN CORPUSCULAR HGB CONC 32 g/dl (31.0-36.0); MEAN CORPUSCULAR VOLUME 86 fL (80-96); MONOCYTES # (AUTO) 0.6 /CMM (0.1-1.30); NEUTROPHILS # (AUTO) 10.4 /CMM (1.8-8.9); NEUTROPHILS % (AUTO) 86.6 % (43.0-81.0); PLATELET COUNT (AUTO) 226 /CMM (150-450); RED BLOOD CELL COUNT(AUTO) 3.72 MIL/uL (4.5-6.0)
--- NOTE | 2020-03-20 08:34 | NUR ---
patient wheeled out via gurney by [facility] for ct scan
--- NOTE | 2020-03-20 08:50 | NUR ---
CALLED NURSING SUP FOR TELE BED.
[2020-03-20 08:51] LABS: ALBUMIN 3.3 g/dL (3.4-5.0); BILIRUBIN,DIRECT 0.1 mg/dL (0.0-0.2); BILIRUBIN,TOTAL 0.4 mg/dL (0.2-1.0); CALCIUM, SERUM 8.6 mg/dL (8.5-10.1); POTASSIUM 5.8 mmol/L (3.5-5.1); TOTAL PROTEIN, SERUM 6.5 g/dL (6.4-8.2)
[2020-03-20 08:52] LABS: CREATININE 14.6 mg/dL (0.6-1.3)
[2020-03-20] MEDS ORDERED: SUCR1TAB PO (09:04)
[2020-03-20] MEDS ORDERED: OMEP20CA15 PO (09:04)
[2020-03-20] MEDS ORDERED: DIPH25CA83 PO (09:04)
[2020-03-20] MEDS ORDERED: ASPI-1152 PO (09:04)
[2020-03-20] MEDS ORDERED: HYDR-4076 PO (09:04)
[2020-03-20] MEDS ORDERED: ACET-2605 PO (09:05)
--- NOTE | 2020-03-20 09:19 | NUR ---
audio technician at bedside
--- NOTE | 2020-03-20 09:20 | NUR ---
PAGED [facility].
[2020-03-20] MEDS ORDERED: SODIUM POLYSTYRENE SULFONATE 15 G/60 ML BOTTLE ONE (09:27)
[2020-03-20] MEDS ORDERED: PIPERACILLIN /TAZOBACTAM 3.375 G VIAL IV ONE (09:27)
[2020-03-20] MEDS ORDERED: SODIUM POLYSTYRENE SULFONATE 15 G/60 ML BOTTLE PO ONE (09:30)
[2020-03-20] MEDS ORDERED: PIPERACILLIN /TAZOBACTAM 3.375 G in IV D5W 50 ML IV ONE (09:30)
[2020-03-20] MEDS ORDERED: VANCOMYCIN 0.75 GM in IV D5W 250 ML IV ONE (09:30)
--- NOTE | 2020-03-20 09:32 | NUR ---
provided patient w apple juice.
--- NOTE | 2020-03-20 09:50 | NUR ---
NURSING SUP GAVE TELE BED 317-2. REANNA IS THE NURSE.
--- NOTE | 2020-03-20 10:04 | NUR ---
REPORT GIVEN TO REANNA HORAN OF TELE UNIT
[2020-03-20] MEDS ORDERED: HEPARIN SODIUM, PORCINE 5000 UNITS/1 ML VIAL ONE (10:06)
[2020-03-20 10:45] VITALS: BP 166/93
[2020-03-20] MEDS: HEPARIN SODIUM, PORCINE 5000 UNITS/1 ML VIAL SQ SCH ×2 (11:12→21:00)
[2020-03-20] MEDS ORDERED: MAGNESIUM HYDROXIDE 30 ML UDC PO PRN (12:30)
[2020-03-20] MEDS: LEVOTHYROXINE SODIUM 75 MCG TABLET PO SCH (12:30)
[2020-03-20] MEDS ORDERED: Z GUARD REMEDY 2 OZ OINT TP PRN (12:30)
[2020-03-20] MEDS ORDERED: ACETAMINOPHEN 325 MG TABLET PO PRN (12:30)
[2020-03-20] MEDS ORDERED: HYDROCODONE/APAP 5/325MG 1 EACH TABLET PO PRN (12:30)
[2020-03-20] MEDS ORDERED: ONDANSETRON HCL/PF 4 MG/2 ML VIAL IVP PRN (12:30)
[2020-03-20] MEDS ORDERED: IV NS 0.9% 1,000 ML IV PRN (12:30)
[2020-03-20] MEDS ORDERED: DEXTROSE 50%-WATER 50 ML DISP.SYRIN IV PRN (12:30)
[2020-03-20] MEDS ORDERED: ZOLPIDEM TARTRATE 5 MG TABLET PO PRN (12:30)
[2020-03-20] MEDS: BLOOD SUGAR DIAGNOSTIC 1 EACH STRIP IN SCH ×3 (12:41→21:16)
--- NOTE | 2020-03-20 12:41 | NUR ---
rn notes BS at 60 at this time, patient able to drink OJ with sugar and eat lunch. will re check again.
[2020-03-20] MEDS: SEVELAMER CARBONATE 800 MG TABLET PO SCH ×2 (13:01→17:18)
[2020-03-20] MEDS: CALCIUM ACETATE 667 MG TABLET PO SCH ×2 (13:01→17:18)
[2020-03-20] MEDS: FERROUS SULFATE (325 MG) 325 MG/TAB TABLET PO SCH (13:02)
[2020-03-20] MEDS: SERTRALINE HCL 50 MG TABLET PO SCH (13:02)
[2020-03-20] MEDS: ATORVASTATIN 40 MG TABLET PO SCH (13:02)
[2020-03-20] MEDS: hydrALAZINE HCL 25 MG TABLET PO SCH (13:02)
[2020-03-20] MEDS: ASPIRIN EC 81 MG TABLET.DR PO SCH (13:02)
[2020-03-20] MEDS: CARVEDILOL 6.25 MG TABLET PO SCH ×2 (13:04→17:19)
--- NOTE | 2020-03-20 14:05 | NUR ---
rn notes patients BS rechecked at 75
[2020-03-20 16:00] VITALS: BP 151/81
--- NOTE | 2020-03-20 17:25 | NUR ---
rn notes patient has a BS of 75, no coverage needed. able to eat with no problem
--- NOTE | 2020-03-20 17:39 | NUR ---
rn notes patient remains on room air, no sob noted, patient a/o x3 and speaks mostly turkmen. Have diarrhea due to Kayexalate being given in the ER for elevated potassium levels. Feet has small wounds. R hand 20 IV access with L FA AV fistula. missed HD today apparently. Plan is to continue HD while here, stabilize blood sugar. Blood sugar has been in the 60-80 range. Bed at the lowest setting, call light within reach, side rails up x2.
--- NOTE | 2020-03-20 19:30 | NUR ---
RN NOTES/ASSESSMENT: RECEIVED REPORT FROM REANNA RN. MET WITH PT IN THE ROOM, PT A/O X3 THAI AND TONGAN SPEAKING, PLACED ON 2L OXYGEN VIA NC, PT NOTED TO BE 92-93% SPO2 ON RA, WITH NOTED SOB WITH EXERTION. TELE MONITORING, SINUS RHYTHM WITH BBB HR 83. 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 IV ACCESS ON RIGHT HAND PATENT AND FLUSHING WELL, INFUSING WITH NS AT 60ML/HR. POSTED PRECAUTION FOR PT'S LEFT ARM HE HAVE AV SHUNT FOR DIALYSIS. BED SIDE COMMODE AVAILABLE, INSTRUCTED PT TO CALL FOR ASSISTANCE. PPE UTILIZED. DISCUSSED PLAN OF CARE TO PT. SAFETY PRECAUTIONS FOR FALL INITIATED, CALL LIGHT IN REACH, WILL CONTINUE MONITORING PT.
[2020-03-20 20:00] VITALS: BP 142/73
--- NOTE | 2020-03-20 20:58 | NUR ---
rn notes/stool specimen: pt had bm, small amount, smelly,fishy odor, pasty to loose consistency. stool specimen collected, sent to lab, handed over to sonali. order for stool ob and cdiff. pt newly admitted (03/20/2020), no need to fill up form.
[2020-03-20 21:08] LABS: OCCULT BLOOD STOOL POSITIVE (NEGATIVE)
[2020-03-20] MEDS: INSULIN REGULAR, HUMAN 100 UNIT/ML 3 ML VIAL SQ PRN (21:16)
[2020-03-20] MEDS: TRAZODONE 50 MG TABLET PO SCH (21:16)
--- NOTE | 2020-03-20 21:17 | NUR ---
fingerstick glucose check 101: blood glucose check result is 101, no insulin coverage given per sliding scale. also pt refused to take his trazodone for tonight stated he doesn't need it tonight. education provided to pt regarding risk vs benefits. pt a/o x3, coherent able to make sound judgment.
--- NOTE | 2020-03-20 21:53 | NUR ---
RN NOTES/EPIC ORDER/STOOL OB +/HOLD HEPARIN DOSE: RESULT OF STOOL OB CAME BACK POSITIVE, NOTIFIED EPIC MD RESERVOIR ENGINEER/DELL IVORY PT HAS SCHEDULE HEPARIN 5000 UNITS SQ TONIGHT AT 2100, PER MD TO HOLD DOSE OF HEPARIN FOR TONIGHT AND FOLLOW UP WITH ATTENDING MD IN AM IF NEEDS TO CONTINUE DOSE. ORDER READ BACK VERIFIED AND CARRIED OUT.
--- NOTE | 2020-03-20 22:33 | NUR ---
RN NOTES: PT LOWER DENTURES PLACED ON DENTURE CAP, PT'S ID BAND/STICKER ATTACHED. PLACED AT BED SIDE TABLE.
[2020-03-21] VITALS (7 sets, daily range): BP systolic 118–163; BP diastolic 60–96
--- NOTE | 2020-03-21 06:04 | NUR ---
accu check 56: initial blood sugar check performed and result obtained is 46, recheck blood glucose using 3rd finger of the right hand, result obtained is 56. D50 administered as ordered at 0600am. stat random glucose ordered per protocol. will recheck blood sugar in 15mins. pt is a/0 x 3 on 2l oixygen via nc, able to state name date of , place where he is, coherent, denies any head ache dizziness or light headedness.
[2020-03-21] MEDS: BLOOD SUGAR DIAGNOSTIC 1 EACH STRIP IN SCH ×5 (06:19→22:59)
--- NOTE | 2020-03-21 06:19 | NUR ---
accu check 15mins post d50: accu check result 15mins post d50 admin is 127. pt a/o x3 on 2l, asymptomatic, watching tv.
[2020-03-21 06:25] LABS: BASOPHILS % (AUTO) 0.6 % (0.0-2.0); EOSINOPHILS % (AUTO) 3.4 % (0.0-6.0); HEMATOCRIT 29 % (39-51); HEMOGLOBIN 9.2 g/dL (13.5-17.5); LYMPHOCYTES # (AUTO) 0.5 /CMM (0.8-4.8); LYMPHOCYTES % (AUTO) 6.3 % (20.0-44.0); MEAN CORPUSCULAR HGB CONC 32 g/dl (31.0-36.0); MEAN CORPUSCULAR VOLUME 85 fL (80-96); MONOCYTES # (AUTO) 0.5 /CMM (0.1-1.30); MONOCYTES % (AUTO) 6.6 % (2.0-12.0); NEUTROPHILS # (AUTO) 6.7 /CMM (1.8-8.9); NEUTROPHILS % (AUTO) 83.1 % (43.0-81.0); PLATELET COUNT (AUTO) 207 /CMM (150-450); RED BLOOD CELL COUNT(AUTO) 3.42 MIL/uL (4.5-6.0); WHITE BLOOD COUNT (AUTO) 8.1 K/uL (4.3-11.0)
--- NOTE | 2020-03-21 06:30 | NUR ---
accu check 30mins post d50 admin: recheck blood glucose 30mins post d50 administration, result obtained is 125. pt is awake, a/o x3, able to make his needs known. denies any head ache, light headedness, or dizziness.
--- NOTE | 2020-03-21 06:31 | NUR ---
ACCUCHECK: BS CHECK AT 125
[2020-03-21 06:47] LABS: CALCIUM, SERUM 8.1 mg/dL (8.5-10.1); MAGNESIUM 2.2 mg/dL (1.8-2.4); PHOSPHORUS 4.2 mg/dL (2.5-4.9); POTASSIUM 5.8 mmol/L (3.5-5.1)
[2020-03-21 06:48] LABS: CREATININE 14.7 mg/dL (0.6-1.3)
--- NOTE | 2020-03-21 07:02 | NUR ---
end of shift report: Pt remains on 2L oxygen via nc, respirations even and unlabored. Cooperative, coherent with sound judgement. iv access remains patent and flushing well, infusing with ns at 60ml/hr, no s/s of iv infiltration noted. Remains on sinus rhythm with bbb hr 80. Pt had one episode of pasty to loose, mucoid bm, dark/greenish black in colore, with fishy odor. The said specimen was sent to lab for CDIFF. Stool OB came back positive, md aware. Pt remains afebrile.PLAN OF CARE: wound care, podiatry and nephro consult. VS remains stable, needs attended. Safety precautions for fall remains engaged, call light in reach, will endorse to day rn for continuity of care.
[2020-03-21] MEDS: LEVOTHYROXINE SODIUM 75 MCG TABLET PO SCH (07:30)
--- NOTE | 2020-03-21 07:50 | NUR ---
RN OPENING NOTE Patient is resting in bed, A/O x3, showing no signs of acute distress or SOB, satuarting >95% on 2L NC. Patient has no complaints of pain at this time. IV line in the right hand #20g is clean and intact, flushing well. LFA AV fistula noted. Patient can transfer with assistance to bedside commode. Bed is in lowest position, side rails x3 in upright position, call light is within reach, fall safety and aspiration precautions enforced. Isolation precautions due to pending CDIFF result. Will continue with plan of care. Addendum: 03/21/20 at 1228 by DON GARNER RN Tele monitor SR 90s
--- NOTE | 2020-03-21 08:21 | NUR ---
WOUND CARE CONSULT: PT PRESENTS WITH DRY ULCERS TO BOTH FEET, PRESENT ON ADMISSION. RECOMMEND DPM CONSULT. DR RIVERO NOTIFIED OF CONSULT REQUEST. RECOMMENDATIONS MADE FOR SKIN PROTECTION. DISCUSSED WITH NURSING STAFF. WILL SEE PRN. ODOM IN AGREEMENT WITH PLAN OF CARE.
[2020-03-21] MEDS: CALCIUM ACETATE 667 MG TABLET PO SCH ×3 (08:39→18:07)
[2020-03-21] MEDS: SEVELAMER CARBONATE 800 MG TABLET PO SCH (08:39)
[2020-03-21] MEDS: ASPIRIN EC 81 MG TABLET.DR PO SCH (08:39)
[2020-03-21] MEDS: CARVEDILOL 6.25 MG TABLET PO SCH ×2 (08:40→18:08)
[2020-03-21] MEDS: hydrALAZINE HCL 25 MG TABLET PO SCH (08:40)
[2020-03-21] MEDS: ATORVASTATIN 40 MG TABLET PO SCH (08:42)
[2020-03-21] MEDS: SERTRALINE HCL 50 MG TABLET PO SCH (08:42)
[2020-03-21] MEDS: FERROUS SULFATE (325 MG) 325 MG/TAB TABLET PO SCH (08:42)
[2020-03-21] MEDS ORDERED: PANTOPRAZOLE 40 MG/PACK PACK PO SCH (09:00)
[2020-03-21] MEDS ORDERED: Medication Not On Formulary EA (Ondansetron Hcl 4 MG) PO SCH (09:00)
[2020-03-21] MEDS: HEPARIN SODIUM, PORCINE 5000 UNITS/1 ML VIAL SQ SCH (09:00)
--- NOTE | 2020-03-21 10:22 | NUR ---
RN NOTE NON-ADMIN heparin due to + STOOL OB. Karissa N.P. made aware. Ok per N.P.
[2020-03-21] MEDS ORDERED: FEE PK DOSING 1 MIN EA MC ONE (10:57)
[2020-03-21] MEDS ORDERED: VANCOMYCIN 500 MG in IV D5W 100 ML IV PRN (11:00)
[2020-03-21] MEDS: INSULIN REGULAR, HUMAN 100 UNIT/ML 3 ML VIAL SQ PRN ×3 (12:04→22:59)
--- NOTE | 2020-03-21 12:05 | NUR ---
RN NOTE NON-ADMIN insulin per sliding scale protocol. BS 82.
[2020-03-21] MEDS: SEVELAMER CARBONATE 0.8 GM POWD.PACK PO SCH ×2 (12:19→18:07)
--- NOTE | 2020-03-21 15:01 | NUR ---
RN NOTE Dr. Lyman came to visit patient and gave verbal orders: - DISCONTINUE FERROUS SULFATE PO - PROTONIX 40MG IV BID - IRON PANEL + FERRITIN - CONTINUE TO MONITOR STOOL CHARACTERISTICS, AND H&H. NOTIFY MD FOR ANY SIGNIFICANT CHANGES. Orders repeated back and carried out. Will continue to monitor patient.
[2020-03-21 15:29] LABS: IRON, SERUM 33 ug/dl (50-175); TOTAL IRON BINDING CAPACITY 204 ug/dl (250-450)
[2020-03-21 15:48] LABS: FERRITIN 356 ng/mL (8-388)
--- NOTE | 2020-03-21 16:42 | NUR ---
RN NOTE DC IVF per Naresh Hancock. Patient is currently receiving HD at this time. Patient is stable, will continue to monitor.
[2020-03-21] MEDS: PANTOPRAZOLE 40 MG VIAL IV SCH (18:07)
--- NOTE | 2020-03-21 18:09 | NUR ---
RN NOTE NON-ADMIN insulin per sliding scale BS 78. Patient completed HD at this time, 2.5L out. Patient remains stable, will admin 1700 medications now.
--- NOTE | 2020-03-21 18:59 | NUR ---
RN CLOSING NOTE Patient is resting in bed, A/O 3, showing no signs of acute distress or SOB, saturating >95% on 2L NC. IV line in the right hand #20g is clean and intact s/l. LFA AV fistula noted, bruit and thrill present. S/P HD 2.5L out today. Patient remains stable. Blood sugar remains stable today. All patient needs met, all due medications given. Patient kept clean and dry throughout shift, wound care done as ordered. Bed is in lowest position, side rails x3 in upright position, call light is within reach, fall safety and aspiration precautions enforced. Will endorse to hvac commercial salesperson for FELICIA. Addendum: 03/21/20 at 1902 by DON GARNER RN Tele monitor SR 70s-80s.
--- NOTE | 2020-03-21 19:10 | NUR ---
NURSING SPECIALIST NOTES Received pt in bed awake and able to make needs known. pt a/o x3 Tajik speaking. Respirations even and unlabored with no s/s of acute distress or sob noted. pt on 2L o2 via nc tolerating well. Pt noted with IV line in the right hand #20g is clean and intact s/l. pt noted with LFA AV fistula noted. Safety measures in place with bed in lowest locked position with side rails up x2. call light within reach. will continue to monitor.
[2020-03-21] MEDS ORDERED: VANCOMYCIN 1 GM in IV D5W 250 ML IV ONE (20:00)
--- NOTE | 2020-03-21 20:00 | NUR ---
FILM AND VIDEO GRAPHICS DESIGNER NOTES PT REFUSED DVT PUMP AT THIS TIME. WILL CONTINUE TO MONITOR.
[2020-03-21] MEDS: TRAZODONE 50 MG TABLET PO SCH (22:00)
--- NOTE | 2020-03-21 23:00 | NUR ---
SHIPBUILDING DRAFTSPERSON NOTES PT REFUSED SS INSULIN WELL TRAZODONE. WILL CONTINUE TO MONITOR.
[2020-03-22] VITALS: BP 151/76
[2020-03-22 04:00] VITALS: BP 149/87
[2020-03-22 06:41] LABS: BASOPHILS % (AUTO) 0.5 % (0.0-2.0); EOSINOPHILS % (AUTO) 3.9 % (0.0-6.0); HEMATOCRIT 29 % (39-51); HEMOGLOBIN 9.4 g/dL (13.5-17.5); LYMPHOCYTES # (AUTO) 0.6 /CMM (0.8-4.8); LYMPHOCYTES % (AUTO) 8.5 % (20.0-44.0); MEAN CORPUSCULAR HGB CONC 32 g/dl (31.0-36.0); MEAN CORPUSCULAR VOLUME 85 fL (80-96); MONOCYTES # (AUTO) 0.7 /CMM (0.1-1.30); MONOCYTES % (AUTO) 9.7 % (2.0-12.0); NEUTROPHILS # (AUTO) 5.2 /CMM (1.8-8.9); NEUTROPHILS % (AUTO) 77.4 % (43.0-81.0); PLATELET COUNT (AUTO) 215 /CMM (150-450); RED BLOOD CELL COUNT(AUTO) 3.46 MIL/uL (4.5-6.0); WHITE BLOOD COUNT (AUTO) 6.7 K/uL (4.3-11.0)
[2020-03-22 06:58] LABS: CALCIUM, SERUM 8.7 mg/dL (8.5-10.1); MAGNESIUM 2.2 mg/dL (1.8-2.4); PHOSPHORUS 5.8 mg/dL (2.5-4.9); POTASSIUM 5.2 mmol/L (3.5-5.1)
[2020-03-22 07:04] LABS: CREATININE 12.1 mg/dL (0.6-1.3)
--- NOTE | 2020-03-22 07:30 | NUR ---
TELE/RN OPENING NOTES Received patient resting in bed, A/O x3, tristanian speaking. No complaints of pain and discomfort noted at this time. Breathing even and non-labored on 2L oxygen via NC. No respiratory or cardiac distress noted. On tele monitor, reading SR HR 81. IV access located on R hand #20 gauge, patent and intact, and flushing well. LFA AV fistula noted, bruit and thrill present. Patient is OOB with assist, instructed patient to use call light when in need of assistance. Fall and aspiration precautions maintained. Will continue with current medical management.
--- NOTE | 2020-03-22 07:43 | NUR ---
DOWEL POINTER NOTES pt in bed awake and able to make needs known. pt a/o x3 Iraqi speaking. Respirations even and unlabored with no s/s of acute distress or sob noted throughout shift. pt on 2L o2 via nc tolerating well. Pt noted with IV line in the right hand #20g is clean and intact s/l. pt noted with LFA AV fistula noted. pt kept clean, dry, and comfortable. Safety measures in place with bed in lowest locked position with side rails up x2. call light within reach. will endorse to oncoming nurse for park.
[2020-03-22] MEDS: BLOOD SUGAR DIAGNOSTIC 1 EACH STRIP IN SCH ×4 (07:46→21:17)
[2020-03-22 08:00] VITALS: BP 155/66
[2020-03-22] MEDS: CALCIUM ACETATE 667 MG TABLET PO SCH ×3 (08:16→17:08)
[2020-03-22] MEDS: ATORVASTATIN 40 MG TABLET PO SCH (08:16)
[2020-03-22] MEDS: PANTOPRAZOLE 40 MG VIAL IV SCH ×2 (08:16→17:07)
[2020-03-22] MEDS: ASPIRIN EC 81 MG TABLET.DR PO SCH (08:16)
[2020-03-22] MEDS: LEVOTHYROXINE SODIUM 75 MCG TABLET PO SCH (08:16)
[2020-03-22] MEDS: SERTRALINE HCL 50 MG TABLET PO SCH (08:16)
[2020-03-22] MEDS: CARVEDILOL 6.25 MG TABLET PO SCH ×2 (08:17→17:08)
[2020-03-22] MEDS: SEVELAMER CARBONATE 0.8 GM POWD.PACK PO SCH ×3 (08:17→17:07)
[2020-03-22] MEDS: hydrALAZINE HCL 25 MG TABLET PO SCH (08:17)
[2020-03-22] MEDS ORDERED: ALBUTEROL FS 2.5 MG/0.5 ML VIAL.NEB NEB PRN (09:00)
[2020-03-22] MEDS ORDERED: IPRATROPIUM NEB FS 0.5 MG/2.5 ML AMPUL.NEB NEB PRN (09:00)
[2020-03-22] MEDS: GUAIFENESIN LA 600 MG TABLET.SA PO SCH ×2 (09:07→21:17)
--- NOTE | 2020-03-22 12:00 | NUR ---
MS/RN NOTES Blood sugar taken, 152 level. Gave 2 units of insulin to patient. Will monitor for s/s of hypoglycemia. Addendum: 03/22/20 at 1251 by BENJY WALTON RN Meter malfunctioning, unable to transfer data to EMR. Notified Lab, spoke with Rony. Said to "bring the meter and just document in the notes the result of your patient's blood sugar"
[2020-03-22] MEDS: INSULIN REGULAR, HUMAN 100 UNIT/ML 3 ML VIAL SQ PRN ×3 (12:30→21:17)
[2020-03-22] MEDS ORDERED: ALBUMIN 25% 25 GM in PREMIX 1 EA IV ONE (14:30)
--- NOTE | 2020-03-22 15:50 | NUR ---
MS/RN NOTES Collected covid-19 test for placement, sent to lab at 1550.
[2020-03-22 16:00] VITALS: BP 151/79
--- NOTE | 2020-03-22 16:30 | NUR ---
MS/RN NOTES HD done today, 2.5 L out. Will monitor patient for s/s of hypotension.
--- NOTE | 2020-03-22 18:15 | NUR ---
MS/RN OPENING NOTES Patient resting in bed in high-dubose's position, A/O x3. Breathing even and non-labored on 2L oxygen via NC, no SOB noted. No cardiac distress noted. Patient denies any pain and discomfort noted at this time. IV access located on R hand #20 gauge, patent and intact, and flushing well. LFA AV fistula noted, bruit and thrill present. Sensation from all peripheral extremities intact. Wound care done on right foot and left toe, dressings clean and intact. Patient is OOB with assist, instructed patient to use call light when in need of assistance. Fall and aspiration precautions maintained. Patient did not have a BM today, will endorse to maintenance technician 3rd shift nurse to monitor for blood in stool or drop in h&h.
--- NOTE | 2020-03-22 18:18 | NUR ---
CORRECTION: MS/RN CLOSING NOTES BELOW
[2020-03-22 20:00] VITALS: BP 142/63
--- NOTE | 2020-03-22 21:17 | NUR ---
MS RN NOTES PT REFUSED SLIDING SCALE INSULIN COVERAGE. WILL CONTINUE TO MONITOR.
[2020-03-22] MEDS: TRAZODONE 50 MG TABLET PO SCH (21:20)
[2020-03-23 06:01] LABS: BASOPHILS % (AUTO) 0.5 % (0.0-2.0); HEMATOCRIT 28 % (39-51); HEMOGLOBIN 9.1 g/dL (13.5-17.5); LYMPHOCYTES # (AUTO) 0.7 /CMM (0.8-4.8); LYMPHOCYTES % (AUTO) 10.7 % (20.0-44.0); MEAN CORPUSCULAR HGB CONC 32 g/dl (31.0-36.0); MEAN CORPUSCULAR VOLUME 84 fL (80-96); MONOCYTES # (AUTO) 0.7 /CMM (0.1-1.30); MONOCYTES % (AUTO) 10.3 % (2.0-12.0); NEUTROPHILS # (AUTO) 4.8 /CMM (1.8-8.9); NEUTROPHILS % (AUTO) 73.5 % (43.0-81.0); PLATELET COUNT (AUTO) 196 /CMM (150-450); RED BLOOD CELL COUNT(AUTO) 3.34 MIL/uL (4.5-6.0); WHITE BLOOD COUNT (AUTO) 6.5 K/uL (4.3-11.0)
[2020-03-23 06:25] LABS: CALCIUM, SERUM 8.4 mg/dL (8.5-10.1); MAGNESIUM 2.1 mg/dL (1.8-2.4); PHOSPHORUS 4.2 mg/dL (2.5-4.9); POTASSIUM 4.5 mmol/L (3.5-5.1)
[2020-03-23 06:33] LABS: CREATININE 9.7 mg/dL (0.6-1.3)
[2020-03-23] MEDS: BLOOD SUGAR DIAGNOSTIC 1 EACH STRIP IN SCH ×4 (06:48→21:24)
--- NOTE | 2020-03-23 07:45 | NUR ---
MS/RN OPENING NOTES Received patient in bed, A/O x3, andorran speaking. Breathing even and non-labored on 2L oxygen via NC. No respiratory or cardiac distress noted. Denies pain and discomfort noted at this time. IV access located on R hand #20 gauge, patent and intact, and flushing well. LFA AV fistula noted, bruit and thrill present. Sensation from all peripheral extremities intact. Dressing on the right foot and left toe dry, clean, and intact. Patient is OOB with assist, instructed patient to call us by using call light for help. Fall and aspiration precautions maintained. Will continue with current medical management.
[2020-03-23 08:00] VITALS: BP 139/76
[2020-03-23] MEDS: SEVELAMER CARBONATE 0.8 GM POWD.PACK PO SCH ×3 (08:17→17:16)
[2020-03-23] MEDS: GUAIFENESIN LA 600 MG TABLET.SA PO SCH ×2 (08:17→21:24)
[2020-03-23] MEDS: LEVOTHYROXINE SODIUM 75 MCG TABLET PO SCH (08:17)
[2020-03-23] MEDS: ASPIRIN EC 81 MG TABLET.DR PO SCH (08:17)
[2020-03-23] MEDS: SERTRALINE HCL 50 MG TABLET PO SCH (08:17)
[2020-03-23] MEDS: CALCIUM ACETATE 667 MG TABLET PO SCH ×3 (08:17→17:16)
[2020-03-23] MEDS: ATORVASTATIN 40 MG TABLET PO SCH (08:17)
[2020-03-23] MEDS: hydrALAZINE HCL 25 MG TABLET PO SCH (08:18)
[2020-03-23] MEDS: CARVEDILOL 6.25 MG TABLET PO SCH ×2 (08:18→16:25)
[2020-03-23] MEDS: PANTOPRAZOLE 40 MG VIAL IV SCH ×2 (08:18→17:16)
--- NOTE | 2020-03-23 12:45 | NUR ---
MS/RN NOTES Blood sugar taken, 137. Told patient about result, refuses insulin. Instructed patient about risks and benefits of taking the medication. Patient verbalized understanding. Will monitor for s/s hypoglycemia.
[2020-03-23] MEDS ORDERED: LEVOFLOXACIN (500MG) 500 MG TABLET PO SCH (13:00)
[2020-03-23] MEDS ORDERED: LEVOFLOXACIN (250MG) 250 MG TABLET PO SCH (13:00)
--- NOTE | 2020-03-23 13:00 | NUR ---
MS/RN NOTES Collected stool specimen. Called lab to pick it up.
[2020-03-23] MEDS: INSULIN REGULAR, HUMAN 100 UNIT/ML 3 ML VIAL SQ PRN ×3 (13:04→21:42)
[2020-03-23 16:00] VITALS: BP 149/75
--- NOTE | 2020-03-23 16:25 | NUR ---
MS/RN NOTES Held carvedilol, since patient is currently receiving hemodialysis.
--- NOTE | 2020-03-23 17:00 | NUR ---
PATIENT ON DIALYSIS @1640. WILL COME BACK AFTER A FEW HOURS FOR CHEST XRAY.
[2020-03-23 17:07] LABS: OCCULT BLOOD STOOL POSITIVE (NEGATIVE)
--- NOTE | 2020-03-23 17:51 | NUR ---
MS/RN NOTES BS taken, 151. Patient refuses to take insulin, since he's states that he is currently still having hemodialysis.
--- NOTE | 2020-03-23 19:24 | NUR ---
MS/RN CLOSING NOTES Patient resting in bed, A/O x3. No complaints of pain and discomfort at this time. Had HD today at around 1600 with 2300 mL out. Breathing even and non-labored on 2L oxygen via NC. No respiratory or cardiac distress noted. IV access located on R hand #20 gauge, patent and intact, and flushing well. LFA AV fistula noted, bruit and thrill present. Sensation from all peripheral extremities intact. Patient is OOB with assist, instructed patient to use call light for help. Fall and aspiration precautions maintained. Stool came out positive for occult blood, will endorse to nightclub manager nurse to notify provider.
[2020-03-23 20:00] VITALS: BP 114/61
--- NOTE | 2020-03-23 20:00 | NUR ---
MS RN OPENING NOTE: Received patient in bed sleeping. Patient on 2L nasal canula; tolerating oxygen. No SOB; breathing unlabored and equal. Patient shows no signs of distress, pain, or discomfort. Left forearm AV fistula noted. Bruit and thrill present. Right foot dressing dry and intact. IV access on right hand noted; 22g, patent, no redness, or infiltration. Safety precaution in place. Bed in lowest position, side rails x2 are up, bed is locked, alarm is on, and call light within reach. Will continue care of plan and monitor.
[2020-03-23] MEDS: TRAZODONE 50 MG TABLET PO SCH (21:24)
[2020-03-24] MEDS: LEVOTHYROXINE SODIUM 75 MCG TABLET PO SCH (06:36)
[2020-03-24] MEDS: BLOOD SUGAR DIAGNOSTIC 1 EACH STRIP IN SCH ×4 (06:36→21:25)
[2020-03-24] MEDS: INSULIN REGULAR, HUMAN 100 UNIT/ML 3 ML VIAL SQ PRN ×4 (06:41→21:29)
[2020-03-24 06:48] LABS: BASOPHILS % (AUTO) 0.6 % (0.0-2.0); EOSINOPHILS % (AUTO) 7.4 % (0.0-6.0); HEMATOCRIT 30 % (39-51); HEMOGLOBIN 9.4 g/dL (13.5-17.5); LYMPHOCYTES # (AUTO) 0.6 /CMM (0.8-4.8); LYMPHOCYTES % (AUTO) 9.4 % (20.0-44.0); MEAN CORPUSCULAR HGB CONC 31 g/dl (31.0-36.0); MEAN CORPUSCULAR VOLUME 86 fL (80-96); MONOCYTES # (AUTO) 0.7 /CMM (0.1-1.30); MONOCYTES % (AUTO) 10.6 % (2.0-12.0); NEUTROPHILS # (AUTO) 4.6 /CMM (1.8-8.9); PLATELET COUNT (AUTO) 208 /CMM (150-450); RED BLOOD CELL COUNT(AUTO) 3.49 MIL/uL (4.5-6.0); WHITE BLOOD COUNT (AUTO) 6.4 K/uL (4.3-11.0)
--- NOTE | 2020-03-24 06:49 | NUR ---
MS RN CLOSING NOTE: Patient in bed watching TV comfortably.Patient on 2L oxygen; nasal canula. No SOB; breathing unlabored and equal. Patient shows no signs of distress, pain, or discomfort. Safety precaution in place. Bed in lowest position, side rails x2 are up, bed is locked, alarm is on, and call light within reach. Will endorse to next shift.
[2020-03-24 07:06] LABS: ALBUMIN 3.4 g/dL (3.4-5.0); BILIRUBIN,TOTAL 0.6 mg/dL (0.2-1.0); CALCIUM, SERUM 8.8 mg/dL (8.5-10.1); MAGNESIUM 2.4 mg/dL (1.8-2.4); POTASSIUM 5.1 mmol/L (3.5-5.1); TOTAL PROTEIN, SERUM 6.7 g/dL (6.4-8.2)
[2020-03-24 07:07] LABS: CREATININE 9.9 mg/dL (0.6-1.3)
--- NOTE | 2020-03-24 07:55 | NUR ---
MS/RN OPENING NOTES Received patient in bed, A/O x3, Iraqi speaking. Respirations even and non-labored on 2L oxygen via NC. No respiratory or cardiac distress noted. Denies pain and discomfort noted at this time. IV access located on R hand #20 gauge, patent and intact, and flushing well. LFA AV fistula noted, bruit and thrill present. Sensation from all peripheral extremities intact. Dressing on the right foot and left toe dry, clean, and intact. Patient is OOB with assist, instructed patient to call us by using call light for help. Fall and aspiration precautions maintained. Will continue with current medical management.
[2020-03-24 08:00] VITALS: BP 155/69
[2020-03-24] MEDS: GUAIFENESIN LA 600 MG TABLET.SA PO SCH ×2 (08:56→21:20)
[2020-03-24] MEDS: ASPIRIN EC 81 MG TABLET.DR PO SCH (08:57)
[2020-03-24] MEDS: ATORVASTATIN 40 MG TABLET PO SCH (08:57)
[2020-03-24] MEDS: CALCIUM ACETATE 667 MG TABLET PO SCH ×3 (08:57→18:09)
[2020-03-24] MEDS: SERTRALINE HCL 50 MG TABLET PO SCH (08:57)
[2020-03-24] MEDS: PANTOPRAZOLE 40 MG VIAL IV SCH ×2 (09:08→18:08)
[2020-03-24] MEDS: hydrALAZINE HCL 25 MG TABLET PO SCH (09:12)
[2020-03-24] MEDS: CARVEDILOL 6.25 MG TABLET PO SCH ×2 (09:13→18:09)
[2020-03-24] MEDS: SEVELAMER CARBONATE 0.8 GM POWD.PACK PO SCH ×3 (09:29→18:09)
[2020-03-24] MEDS ORDERED: LEVOFLOXACIN (250MG) 250 MG TABLET PO SCH (13:00)
[2020-03-24 16:00] VITALS: BP 162/84
[2020-03-24 18:50] VITALS: BP 119/75
[2020-03-24 18:52] VITALS: BP 148/84
[2020-03-24 18:53] VITALS: BP 157/78
--- NOTE | 2020-03-24 19:03 | NUR ---
MS RN CLOSING NOTE: Patient sitting in chair watching TV comfortably.Patient on 2L oxygen; nasal canula. No SOB; breathing unlabored and equal.Pt had HD today out put 1200 ml ,LFA AV fistula intact nos/S of complication noted Patient shows no signs of distress, pain, or discomfort. Safety precaution in place. Bed kept in lowest position, side rails x2 are up, bed is locked, alarm is on, and call light within reach. Will endorse to next shift.
--- NOTE | 2020-03-24 19:20 | NUR ---
RN medsurg opening notes Received Pt from morning nurse. Pt is sitting in a chair comfortably watching TV. Pt is alert and orientedX3. Pt speaks Kazakh and able to make needs known. Respiration is normal in 2 L NC. No SOB. No S/S of distress noted. IV sites at R hand # 20 is clean, intact and patent. Safety precautions is maintained. Bed at low position, brakes locked, side rails upX2 and call light is within reach. Will continue to monitor.
[2020-03-24 20:00] VITALS: BP 154/60
[2020-03-24] MEDS: TRAZODONE 50 MG TABLET PO SCH (21:17)
--- NOTE | 2020-03-24 21:17 | NUR ---
RN medsurg notes Pt refused trazadone 50 mg. Offered multiple times. Made aware risks and benefits. Pt keep refusing. Will continue to monitor.
--- NOTE | 2020-03-24 22:57 | NUR ---
RN medsurg notes Pt is resting in bed comfortably. No SOB. No S/S of distress noted. Pt's weight is 245 lbs on bed scale. Safety precautions is maintained. Will continue to monitor.
[2020-03-25] MEDS: BLOOD SUGAR DIAGNOSTIC 1 EACH STRIP IN SCH ×2 (06:30→11:38)
[2020-03-25 06:43] LABS: POTASSIUM 5.2 mmol/L (3.5-5.1)
--- NOTE | 2020-03-25 06:45 | NUR ---
RN medsur closing notes Pt is sitting in a chair comfortably watching TV. Pt is alert and orientedX3. Respiration is normal in 2 L NC. No SOB. No S/S of distress noted. VS is stable. Afebrile. IV sites at R hand # 20 is clean, intact and patent. LFA Av fistula is intact, thrill and bruit. Pt refused to have wound care dressing change. Offered several times. Pt keep refusing. Made aware risks and benefits. Keep Pt clean, dry and comfortable. Safety precautions is maintained. Bed at low position, brakes locked, side rails upX2 and call light is within reach. Will endorse to morning nurse for FELICIA.
[2020-03-25 08:00] VITALS: BP 158/66
[2020-03-25 08:10] LABS: CREATININE 10.2 mg/dL (0.6-1.3)
[2020-03-25] MEDS: ASPIRIN EC 81 MG TABLET.DR PO SCH (08:12)
[2020-03-25] MEDS: SERTRALINE HCL 50 MG TABLET PO SCH (08:12)
[2020-03-25] MEDS: GUAIFENESIN LA 600 MG TABLET.SA PO SCH (08:13)
[2020-03-25] MEDS: hydrALAZINE HCL 25 MG TABLET PO SCH (08:13)
[2020-03-25] MEDS: ATORVASTATIN 40 MG TABLET PO SCH (08:13)
[2020-03-25] MEDS: SEVELAMER CARBONATE 0.8 GM POWD.PACK PO SCH ×2 (08:14→12:21)
[2020-03-25] MEDS: CALCIUM ACETATE 667 MG TABLET PO SCH ×2 (08:14→12:22)
[2020-03-25] MEDS: CARVEDILOL 6.25 MG TABLET PO SCH ×2 (08:15→16:10)
[2020-03-25] MEDS: LEVOTHYROXINE SODIUM 75 MCG TABLET PO SCH (08:15)
[2020-03-25] MEDS: PANTOPRAZOLE 40 MG VIAL IV SCH ×2 (08:23→16:10)
--- NOTE | 2020-03-25 08:51 | NUR ---
MS RN OPENING NOTE Received patient awake sitting in chair. A/Ox4. Skin warm, dry, appropriate for ethnicity. Breath sounds even, unlabored, slightly diminished. No SOB or distress. Nasal cannula 2 L/min satting at 100%. No JVD. No pain. Bowel sounds hypoactive. Abdomen soft and round. Pt ate 100% of breakfast, tolerated well. IV site right hand 20g patent, intact. No signs of infiltration. AV shunt in left upper arm, clean, dry, intact. Safety precautions maintained. Call light within reach.
[2020-03-25 09:18] VITALS: BP 158/66
[2020-03-25] MEDS: INSULIN REGULAR, HUMAN 100 UNIT/ML 3 ML VIAL SQ PRN (11:39)
[2020-03-25] MEDS ORDERED: LEVO500T90 PO (13:33)
[2020-03-25] MEDS ORDERED: hydrALAZINE HCL IV 20 MG VIAL IV ONE (16:00)
[2020-03-25 16:10] VITALS: BP 184/79
--- NOTE | 2020-03-25 16:50 | NUR ---
MS RN NOTE Patient blood pressure 184/79. Dr. Frost notified. Gave 10 mg hydralazine IV per doctor order. Pt blood pressure 154/65.
--- NOTE | 2020-03-25 16:56 | NUR ---
MS ICE CREAM SERVER NOTE Pt discharged to home with discharge teaching and medication list. Informed patient of updated medication list and to grape picker prescription at preferred pharmacy. Pt refused photos to be taken of wound. All belongings returned to patient and denied any missing items. D/C IV right hand 20g, clean and intact. Patient tolerated well. PT discharge to personal vehicle with family member.
== END 2020-03-25 17:27 | disposition hospice, home (50) | DRG 177 ==
LOC: ER 08:00 → TELE 09:56 → MED 03-22 09:48
PROVIDERS: ADMIT Nurse Practitioner Acute Care; ATTEND Student in an Organized Health Care Education/Training Program
PROC: 5A1D70Z Performance of Urinary Filtration, Intermittent, Less than 6 Hours Per Day (ICD-10-PCS; principal; 2020-03-21)
DX: J15.6 Pneumonia due to other Gram-negative bacteria (principal); N18.6 End stage renal disease; E44.1 Mild protein-calorie malnutrition; E87.1 Hypo-osmolality and hyponatremia; I13.2 Hypertensive heart and chronic kidney disease with heart failure and with stage 5 chronic kidney disease, or end stage renal disease; D68.59 Other primary thrombophilia; E87.2 Acidosis; K52.9 Noninfective gastroenteritis and colitis, unspecified; E03.9 Hypothyroidism, unspecified; E11.22 Type 2 diabetes mellitus with diabetic chronic kidney disease; Z99.2 Dependence on renal dialysis; I50.9 Heart failure, unspecified; E11.621 Type 2 diabetes mellitus with foot ulcer; L97.519 Non-pressure chronic ulcer of other part of right foot with unspecified severity; L97.529 Non-pressure chronic ulcer of other part of left foot with unspecified severity; Z86.73 Personal history of transient ischemic attack (TIA), and cerebral infarction without residual deficits; E11.51 Type 2 diabetes mellitus with diabetic peripheral angiopathy without gangrene; E78.5 Hyperlipidemia, unspecified; D64.9 Anemia, unspecified; N40.0 Benign prostatic hyperplasia without lower urinary tract symptoms; Z79.82 Long term (current) use of aspirin; Z79.84 Long term (current) use of oral hypoglycemic drugs; Z79.899 Other long term (current) drug therapy; D63.8 Anemia in other chronic diseases classified elsewhere; E87.5 Hyperkalemia; E66.01 Morbid (severe) obesity due to excess calories; E11.649 Type 2 diabetes mellitus with hypoglycemia without coma; I70.201 Unspecified atherosclerosis of native arteries of extremities, right leg; F32.9 Major depressive disorder, single episode, unspecified; M77.31 Calcaneal spur, right foot; F17.200 Nicotine dependence, unspecified, uncomplicated; E11.610 Type 2 diabetes mellitus with diabetic neuropathic arthropathy
CPT/HCPCS: 36415; 70450-TC; 71045-TC; 73620-TC; 73660-TC; 80048-TC; 80053-TC; 80061-TC; 80076-TC; 80202-TC; 82272-TC; 82728-TC; 82962-TC; 83540-TC; 83605-TC; 83735-TC; 84100-TC; 84443-TC; 84484-TC; 85025-TC; 85652-TC; 85730-TC; 87040-TC; 87081-TC; 90935-TC; 93970-TC; 97110-TC; 97116-TC; 97530-TC; A4216; A6403; C9113; G0378; J0360; J1644; J1815; J2405; J2543; J3370; J7030; J7040; J7060; P9047; U0003-CS

== ENCOUNTER 2020-07-08 06:39 | Inpatient (IN) | payer MEDICARE, OTHER ==
[~2020-07-08] VITALS: Ht 185.4 cm; Wt 106.6 kg
[~2020-07-08 06:39] MED LIST changes: +ACET-2605 PO; -ASPI-1169 PO; +ASPI-1420 PO; +DIPH25CA83 PO; -FAMO20TA8 PO; -GLIP5TAB13 PO; +HYDR-4076 PO; +LEVO500T90 PO; -MECL-182 PO; -MIDO5TAB4 PO; -NATE60TA4 PO; +OMEP20CA15 PO; +SUCR1TAB PO; -TAMS-12 PO
--- NOTE | 2020-07-08 06:46 | NUR ---
DR WISEMAN AT BEDSIDE
--- NOTE | 2020-07-08 06:48 | NUR ---
PT [id number] FROM [facility] FOR LOW BLOOD SUGAR. PER REPORT SUGAR WAS AT 33, PT GIVEN GLUCAGON EDUCATIONAL AID. PT AAOX3, RESPIRATIONS EVEN AND UNLABORED ON RA W/ NAD NOTED. PT CONNECTED TO THE TECHNICAL SALES CONSULTANT AND POX
[2020-07-08] MEDS ORDERED: IV D5/0.45 NACL 1,000 ML IV ONE (07:00)
--- NOTE | 2020-07-08 07:05 | NUR ---
BLOOD COLLECTED AND SENT TO LAB
--- NOTE | 2020-07-08 07:06 | NUR ---
EKG AT BEDSIDE
--- NOTE | 2020-07-08 07:14 | NUR ---
XRAY AT BEDSIDE
[2020-07-08 07:16] LABS: BASOPHILS % (AUTO) 0.5 % (0.0-2.0); EOSINOPHILS % (AUTO) 0.9 % (0.0-6.0); HEMATOCRIT 37 % (39-51); HEMOGLOBIN 11.7 g/dL (13.5-17.5); LYMPHOCYTES # (AUTO) 0.6 /CMM (0.8-4.8); LYMPHOCYTES % (AUTO) 7.1 % (20.0-44.0); MEAN CORPUSCULAR HGB CONC 31 g/dl (31.0-36.0); MEAN CORPUSCULAR VOLUME 87 fL (80-96); MONOCYTES # (AUTO) 0.3 /CMM (0.1-1.30); MONOCYTES % (AUTO) 3.4 % (2.0-12.0); NEUTROPHILS # (AUTO) 7.6 /CMM (1.8-8.9); NEUTROPHILS % (AUTO) 88.1 % (43.0-81.0); PLATELET COUNT (AUTO) 319 /CMM (150-450); RED BLOOD CELL COUNT(AUTO) 4.29 MIL/uL (4.5-6.0); WHITE BLOOD COUNT (AUTO) 8.6 K/uL (4.3-11.0)
[2020-07-08 07:31] LABS: ALBUMIN 3.3 g/dL (3.4-5.0); BILIRUBIN,DIRECT 0.1 mg/dL (0.0-0.2); BILIRUBIN,TOTAL 0.3 mg/dL (0.2-1.0); CALCIUM, SERUM 8.5 mg/dL (8.5-10.1); TOTAL PROTEIN, SERUM 7.3 g/dL (6.4-8.2)
--- NOTE | 2020-07-08 07:41 | NUR ---
med recon nurse notes: called [facility] to verify meds and per staff pt is no longer taking metformin and glipizide and the rest of the meds are same.
--- NOTE | 2020-07-08 07:46 | NUR ---
panel on-call paged
[2020-07-08] MEDS ORDERED: MIDO10TA PO (07:48)
[2020-07-08 07:57] LABS: POTASSIUM 6.2 mmol/L (3.5-5.1)
[2020-07-08 07:58] LABS: CREATININE 11.5 mg/dL (0.6-1.3)
--- NOTE | 2020-07-08 08:00 | NUR ---
PT KEEP BENDING HISR ARM THEREFORE IV FLUID/PUMP KEEPS BEEPING. IV ACCESS STARTED ON L WRIST G22. INTACT AND PATENT AND FLUSHING WELL. Addendum: 07/08/20 at 0831 by DCABANOS CORRECTION: IV ACCES STARTED ON R WRIST G22.
--- NOTE | 2020-07-08 08:10 | NUR ---
REJI HENDERSON COLLECTED. SENT TO LAB
--- NOTE | 2020-07-08 08:15 | NUR ---
ANTIQUER PAGED ITS DR. BOLTON
[2020-07-08] MEDS ORDERED: hydrALAZINE HCL IV 20 MG VIAL IV ONE (09:00)
[2020-07-08] MEDS ORDERED: hydrALAZINE HCL IV 20 MG VIAL ONE (09:02)
--- NOTE | 2020-07-08 09:10 | NUR ---
room 202
--- NOTE | 2020-07-08 09:50 | NUR ---
BEDSIDE REPORT GIVEN TO KARUNA RN FOR FELICIA. PT BP UPON TRANSFER WAS 133/78
--- NOTE | 2020-07-08 10:00 | NUR ---
ms rn received a new admission from er, awake,very confuse,very lethargic,respirations even and unlabored,no sob noted, lungs are ronchi's, abdomen soft,positive bowel sounds denies pain at this time,all needs attended.
--- NOTE | 2020-07-08 11:00 | NUR ---
ms rn texted dr. riojas for orders, and was told to notify dr. velasco of admission.
[2020-07-08 11:30] VITALS: BP 139/78
--- NOTE | 2020-07-08 12:00 | NUR ---
ms rn notified dr. velasco thru text and was aware of this admission.
--- NOTE | 2020-07-08 12:30 | NUR ---
ms rn was seen by dr. riojas, waiting for admission order.
--- NOTE | 2020-07-08 14:16 | NUR ---
ms rn patient does not looking good,cold clammy skin, perspiring, checked blood sugar-32- at this time, notified dr. shine acuna/ orders made and carried out.
--- NOTE | 2020-07-08 14:20 | NUR ---
ms donahue d50 given iv, will recheck blood sugar after 10 minutes.
[2020-07-08] MEDS ORDERED: INSULIN REGULAR, HUMAN 100 UNIT/ML 3 ML VIAL SQ PRN (14:30)
[2020-07-08] MEDS ORDERED: DEXTROSE 50%-WATER 50 ML DISP.SYRIN IV PRN (14:30)
[2020-07-08] MEDS ORDERED: HYDROCODONE/APAP 5/325MG TABLET PO PRN (14:30)
[2020-07-08] MEDS ORDERED: Z GUARD REMEDY 2 OZ OINT TP PRN (14:30)
[2020-07-08] MEDS ORDERED: DEXTROSE 50%-WATER 50 ML DISP.SYRIN IVP ONE (14:30)
--- NOTE | 2020-07-08 14:40 | NUR ---
ms rn blood sugar 103-patient looks, feel better, hd started w/o complication.
[2020-07-08] MEDS ORDERED: ACETAMINOPHEN 325 MG TABLET PO PRN (15:30)
[2020-07-08] MEDS: SUCRALFATE 1 G TABLET PO SCH ×2 (17:00→21:00)
[2020-07-08] MEDS: CARVEDILOL 6.25 MG TABLET PO SCH (17:00)
--- NOTE | 2020-07-08 17:50 | NUR ---
ms godfrey checked bs- 48- d50 iv given again.
[2020-07-08] MEDS: CALCIUM ACETATE 667 MG TABLET PO SCH (18:00)
[2020-07-08] MEDS: SEVELAMER CARBONATE 800 MG POWD.PACK PO SCH (18:00)
[2020-07-08] MEDS: IV D5W 1,000 ML IV SCH (18:03)
--- NOTE | 2020-07-08 18:10 | NUR ---
ms godfrey bs rechecked - 123 - started d5w at 75ml/hr per dr. riojas's order.
[2020-07-08] MEDS: BLOOD SUGAR DIAGNOSTIC 1 EACH STRIP IN SCH ×2 (18:51→22:00)
--- NOTE | 2020-07-08 19:45 | NUR ---
RN OPENING NOTES PATIENT RECEIVED RESTING IN BED A/O X 2. BREATHING EVEN AND UNLABORED, NO SOB NOTED. NO SIGNS OF ACUTE DISTRESS. NO COMPLAINTS OF PAIN OR DISCOMFORT AT THE MOMENT. IV LOCATED ON RAC #8 AND R WRIST #22 RUNNING D5W @ 75 ML/HR. TELE MONITOR READING SR. PATIENT REMAINING NPO THROUGHOUT THE NIGHT. SAFETY PRECAUTIONS IN PLACE WITH BED IN LOWEST POSITION, CALL LIGHT WITHIN REACH, BREAKS ON, SIDE RAILS UP. WILL CONTINUE TO MONITOR THROUGHOUT THE NIGHT.
[2020-07-08 20:00] VITALS: BP 124/77
[2020-07-08] MEDS: TRAZODONE 50 MG TABLET PO SCH (22:00)
--- NOTE | 2020-07-08 22:15 | NUR ---
RN NOTES SPOKE TO SISTER HUGH ON THE PHONE FOR PATIENT UPDATE. WANTS PATIENT TO GO TO ASSISTED LIVING. WILL ENDORSE TO ONCOMING SHIFT.
--- NOTE | 2020-07-08 22:43 | NUR ---
RN NOTES REPORT GIVEN TO TABATHA FOR FELICIA.
--- NOTE | 2020-07-08 23:00 | NUR ---
MS 2 RN NOTE RECEIVED PT IN BED A/O X X2. NO SOB, NO DISTRESS OR DISCOMFORT NOTED. DENIES PAIN. ON TELE SR WITH PAC HR 98. PT REMAIN NPO DUE TO FAILED SWALLOW EVAL. RAC #18 G AND RT WRIST #22 G INTACT AND PATENT INFUSING D5W 75 ML/HR, NO S/S OF INFILTRATION NOTED. ALL NEEDS ATTENDED. VSS. CONTINUE TO MONITOR HIM.
[2020-07-09] VITALS: BP 128/62
--- NOTE | 2020-07-09 01:40 | NUR ---
RESEARCH ASSOCIATE PROFESSOR NOTE PT C/0 RIGHT SHOULDER PAIN, JANNA NET MAKER INFORMED. RECEIVED NEW ORDER, ORDER NOTED AND CARRIED OUT.
--- NOTE | 2020-07-09 01:50 | NUR ---
HIGH RISK CASE MANAGER NOTE MORPHINE 2 MG IVP GIVEN FOR PAIN IN RT SHOULDER 04/21. CONTINUE TO MONITOR
[2020-07-09] MEDS: MORPHINE SULFATE INJ 2 MG/ML DISP.SYRIN IV PRN ×4 (01:55→18:34)
--- NOTE | 2020-07-09 02:20 | NUR ---
MANAGER ENGLISH NOTE PAIN SUBSIDED 10/22. PT FALL BACK TO SLEEP, AROUSABLE. NO DISTRESS OR DISCOMFORT NOTED. IVF INFUSING WELL. NO S/S OF INFILTRATION NOTED.
[2020-07-09 04:00] VITALS: BP 143/72
[2020-07-09] MEDS: BLOOD SUGAR DIAGNOSTIC 1 EACH STRIP IN SCH ×4 (05:37→22:12)
--- NOTE | 2020-07-09 06:24 | NUR ---
LIGHT CLEANER NOTE PT IN BED AWAKE. NO DISTRESS OR DISCOMFORT NOTED. DENIES PAIN. IVF INFUSING WELL, NO S/S OF INFILTRATION NOTED. KEPT HIM DRY AND CLEAN. ALL NEEDS ATTENDED. ON TELE MONITOR SR WITH PAC 88. SIDE RAILS UP X 2 AND CALL LIGHT WITHIN REACH. WILL ENDORSE TO DAY SHIFT NURSE FOR CONTINUE TO CARE.
[2020-07-09 06:53] LABS: BASOPHILS # (AUTO) 0.1 /CMM (0.0-0.2); EOSINOPHILS % (AUTO) 2.5 % (0.0-6.0); HEMATOCRIT 35 % (39-51); HEMOGLOBIN 11.2 g/dL (13.5-17.5); LYMPHOCYTES % (AUTO) 14.2 % (20.0-44.0); MEAN CORPUSCULAR HGB CONC 32 g/dl (31.0-36.0); MEAN CORPUSCULAR VOLUME 86 fL (80-96); MONOCYTES # (AUTO) 0.5 /CMM (0.1-1.30); MONOCYTES % (AUTO) 7.7 % (2.0-12.0); NEUTROPHILS # (AUTO) 5.3 /CMM (1.8-8.9); NEUTROPHILS % (AUTO) 74.6 % (43.0-81.0); PLATELET COUNT (AUTO) 306 /CMM (150-450); RED BLOOD CELL COUNT(AUTO) 4.03 MIL/uL (4.5-6.0); WHITE BLOOD COUNT (AUTO) 7.1 K/uL (4.3-11.0)
[2020-07-09 07:14] LABS: MAGNESIUM 2.7 mg/dL (1.8-2.4); PHOSPHORUS 5.7 mg/dL (2.5-4.9); POTASSIUM 4.6 mmol/L (3.5-5.1)
[2020-07-09 07:19] LABS: THYROID STIMULATING HORMONE 2.616 uIU/mL (0.358-3.74)
[2020-07-09] MEDS: LEVOTHYROXINE SODIUM 50 MCG TABLET PO SCH (07:30)
--- NOTE | 2020-07-09 07:30 | NUR ---
RN OPENING NOTES RECEIVED PATIENT IN BED, A/OX2, ON ROOM AIR, SPO2 IS 96%, NO DISTRESS NOTED, NO SOB, DENIES PAIN OR DISCOMFORT, WOUND NOTED ON R FOOT, NPO STATUS NOTED UNTIL SWALLOW EVALUATION, IV LINES NOTED ON R AC AND R WRIST, BOTH PATENT AND INTACT, RUNNING D5W 2 75 CC/HR, TOLERATING WELL, HOB IS ELEVATED, SAFETY MEASURES IN PLACE, CALL LIGHT IN REACH, ROOM CLOSE TO NURSING STATION, WILL CONT TO MONITOR
[2020-07-09 07:31] LABS: CREATININE 8.5 mg/dL (0.6-1.3)
[2020-07-09] MEDS: IV D5W 1,000 ML IV SCH ×2 (07:40→20:55)
--- NOTE | 2020-07-09 07:45 | NUR ---
TELE MONITOR DATA IS SR WITH BBB, HR 94
[2020-07-09 08:00] VITALS: BP 141/67
[2020-07-09] MEDS: SEVELAMER CARBONATE 800 MG POWD.PACK PO SCH ×3 (08:00→18:00)
[2020-07-09] MEDS: CALCIUM ACETATE 667 MG TABLET PO SCH ×3 (08:00→18:00)
[2020-07-09] MEDS: CARVEDILOL 6.25 MG TABLET PO SCH ×2 (09:00→16:43)
[2020-07-09] MEDS: SERTRALINE HCL 50 MG TABLET PO SCH (09:00)
[2020-07-09] MEDS: FLUDROCORTISONE 0.1 MG TABLET PO SCH (09:00)
[2020-07-09] MEDS: hydrALAZINE HCL 25 MG TABLET PO SCH (09:00)
[2020-07-09] MEDS ORDERED: OMEPRAZOLE 20 MG CAPSULE.DR PO SCH (09:00)
[2020-07-09] MEDS: ASPIRIN EC 81 MG TABLET.DR PO SCH (09:00)
[2020-07-09] MEDS: ATORVASTATIN 40 MG TABLET PO SCH (09:00)
[2020-07-09] MEDS: SUCRALFATE 1 G TABLET PO SCH ×4 (09:00→20:46)
[2020-07-09] MEDS: FERROUS SULFATE (325 MG) 325 MG/TAB TABLET PO SCH (09:00)
[2020-07-09] MEDS: PANTOPRAZOLE 40 MG TABLET.DR PO SCH (09:00)
--- NOTE | 2020-07-09 09:09 | NUR ---
WOUND CARE CONSULT: PT PRESENTS WITH DRY ULCER TO RT PLANTAR FOOT, PRESENT ON ADMISSION. RECOMMEND DPM CONSULT. DR RIVERO NOTIFIED OF CONSULT REQUEST. RECOMMENDATIONS MADE FOR SKIN PROTECTION. DISCUSSED WITH NURSING STAFF. WILL SEE PRN. ODOM IN AGREEMENT WITH PLAN OF CARE.
--- NOTE | 2020-07-09 09:35 | NUR ---
BLOOD SUGAR CHECKED, 86
--- NOTE | 2020-07-09 09:45 | NUR ---
TRANSFERRED VIA BED TO ROOM 109, REPORT GIVEN TO RN
--- NOTE | 2020-07-09 10:00 | NUR ---
Patient received via bed and admitted to room 114. Report given by Giuliana HORAN. Patient awake , alert and oriented x2, garbled speech, NPO. IV D5w running as ordered. Will monitor for S/S hypoglycemia
[2020-07-09 12:00] VITALS: BP 164/68
[2020-07-09 16:00] VITALS: BP 183/92
--- NOTE | 2020-07-09 16:30 | NUR ---
[employer] made APS report due to suspicion of self-neglect per nurse report to SW. Per nurse, the family expressed concerns that pt. has not been able to care for self. APS report intake #[id number]. SW to place report email confirmation in patient's chart.
--- NOTE | 2020-07-09 17:56 | NUR ---
Per Hydralazine 10 mg IV Q8H PRN ordered .Pt unable to swallow pills
[2020-07-09] MEDS ORDERED: hydrALAZINE HCL IV 20 MG VIAL IV PRN (18:00)
--- NOTE | 2020-07-09 18:02 | NUR ---
Pharmacy does not have Hydralazine IV form. Dr Jiménez notified.
--- NOTE | 2020-07-09 19:06 | NUR ---
Received call from pharmacy. They able to verify Hydralazine IV , it available in overnight houseperson [employer]
--- NOTE | 2020-07-09 19:09 | NUR ---
Patient is stable on room air. IV D5w running as ordered . NPO status continue until video swallow done. Patient unable to swallow fluids with thickener. PAtient kept clean and dry. All needs attended. BS within normal range. Willl endorse to next shift for FELICIA
--- NOTE | 2020-07-09 19:45 | NUR ---
MS RN NOTES RECEIVED ON BED A/O X2,GARBLED SPEECH,BREATHING REGULAR,NOT IN ANY FORM OF DISTRESS.IV D5W AT 75ML/HR RATE INFUSING WELL ON RIGHT AC,SITE PATENT.NPO STATUS FOR ASPIRATION PRECAUTION,FOR VIDEO SWALLOW IN THE MORNING.WITH LEFT AV FISTULA FOR HD ACCESS,WITH GOOD THRILL AND BRUIT NOTED.CALL LIGHT IN REACH,NEEDS ANTICIPATED.
[2020-07-09 20:00] VITALS: BP 184/80
[2020-07-09] MEDS: TRAZODONE 50 MG TABLET PO SCH (20:47)
--- NOTE | 2020-07-09 21:30 | NUR ---
MS RN NOTES ACCU-CHECK BLOOD SUGAR CHECK 101,NO INSULIN COVERAGE.
[2020-07-09] MEDS ORDERED: hydrALAZINE HCL IV 20 MG VIAL ONE (21:55)
--- NOTE | 2020-07-09 22:07 | NUR ---
MS RN NOTES BLOOD PRESSURE AT 1999 184/80,PULSE-83,CHARGE NURSE MADE AWARE WITH PRN ORDER OF APRESOLINE 20MG IVP FOR SBL>160. RECHECK BEFORE GIVING MEDICINE AND IT WAS 174/88,PULSE-81,NO PAIN.APRESOLINE 10MG IVP GIVEN THIS TIME.
[2020-07-10] VITALS: BP 137/83
[2020-07-10] MEDS: ONDANSETRON HCL/PF 4 MG/2 ML VIAL IVP PRN ×2 (00:06→10:44)
--- NOTE | 2020-07-10 00:07 | NUR ---
MS RN NOTES FEELING NAUSEATED,BLOOD PRESSURE RECHECK 137/83,PULSE-89.ZOFRAN 4MG IVP GIVEN ORDERED.
[2020-07-10 04:00] VITALS: BP 157/69
[2020-07-10] MEDS: MORPHINE SULFATE INJ 2 MG/ML DISP.SYRIN IV PRN (04:16)
--- NOTE | 2020-07-10 04:16 | NUR ---
MS RN NOTES PAIN MANAGEMENT C/O RIGHT SHOULDER PAIN 8/10ON PAIN SCALE,MORPHINE 2MG IV ORDERED.
--- NOTE | 2020-07-10 06:15 | NUR ---
MS RN NOTES ABLE TO COMMUNICATE WITH GARYESYD SPEECH,KEPT NPO FOR VIDEO SWALLOW TODAY.IVF IN PROGRESS VIA IV PUMP.PAIN MANAGEMENT EFFECTIVE.BLOOD SUGAR CONTROLLED.D/C PLAN TO SNF REQUESTED BY SISTER HUGH.IN NO ACUTE DISTRESS.NEEDS ATTENDED.
[2020-07-10 07:02] LABS: CALCIUM, SERUM 7.6 mg/dL (8.5-10.1); POTASSIUM 5.4 mmol/L (3.5-5.1)
[2020-07-10 07:05] LABS: CREATININE 10.3 mg/dL (0.6-1.3)
--- NOTE | 2020-07-10 07:25 | NUR ---
ms rn received on bed, awake,alert,oriented x2,not in any form of distress, respirations even and unlabored,no sob noted, lungs are clear,abdomen soft,positive bowel sounds,denies pain at this time, will monitor patient.
[2020-07-10] MEDS: LEVOTHYROXINE SODIUM 50 MCG TABLET PO SCH (07:30)
[2020-07-10] MEDS: BLOOD SUGAR DIAGNOSTIC 1 EACH STRIP IN SCH ×3 (07:47→18:06)
[2020-07-10 08:00] VITALS: BP 156/87
[2020-07-10] MEDS: SEVELAMER CARBONATE 800 MG POWD.PACK PO SCH ×3 (08:00→18:05)
[2020-07-10] MEDS: CALCIUM ACETATE 667 MG TABLET PO SCH ×3 (08:00→18:05)
[2020-07-10] MEDS: SUCRALFATE 1 G TABLET PO SCH ×3 (08:11→18:05)
[2020-07-10] MEDS: hydrALAZINE HCL 25 MG TABLET PO SCH (08:11)
[2020-07-10] MEDS: CARVEDILOL 6.25 MG TABLET PO SCH ×2 (08:11→18:06)
[2020-07-10] MEDS: ASPIRIN EC 81 MG TABLET.DR PO SCH (08:11)
[2020-07-10] MEDS: FERROUS SULFATE (325 MG) 325 MG/TAB TABLET PO SCH (08:12)
[2020-07-10] MEDS: SERTRALINE HCL 50 MG TABLET PO SCH (08:12)
[2020-07-10] MEDS: ATORVASTATIN 40 MG TABLET PO SCH (08:12)
[2020-07-10] MEDS: PANTOPRAZOLE 40 MG TABLET.DR PO SCH (08:12)
[2020-07-10] MEDS: FLUDROCORTISONE 0.1 MG TABLET PO SCH (08:12)
--- NOTE | 2020-07-10 08:34 | NUR ---
ms rn remains on npo at this time, failed swallow eval, for vodoe swallow today,still w/ garbled speech.
[2020-07-10] MEDS: IV D5W 1,000 ML IV SCH (10:43)
--- NOTE | 2020-07-10 14:22 | NUR ---
Upon SS consult, the pt. is laying in his bed awake and speaking to his sister on the phone. After pt. ended the call, he was receptive to speaking with SW. Pt.'s primary language is Surinamese and SW conducted interview in Surinamese. The pt. is alert and oriented x 4 and appears well groomed and is heavy set. However, pt. has slurred speech, and drowsy. Pt. confused at times and unable to answer who provides care for him (food, transportation to HD, medication management). Patient stated he lives with his sister, Nahed and his nephew, however, per note, the pt. comes from [facility] and care. Patient unable to provide additional information. Patient gave verbal consent to SW to contact his sister, Nahed [phone]. SW called Nahed who stated that she is the road builder of [facility] (assisted [facility]) and the pt. is the co-road builder of the facility. Per Nahed, the pt. resides in her home but is not a resident. Per Nahed, the pt. suffered a stroke about 2 months ago, the pt. has an unsteady gate and has fallen in the past and she encourages the pt. to use his wheelchair. Per Nahed, the pt. smoke about 1 pack of cigarettes a day. Per Nahed, the pt. gets very weak after every HD apt. Per Nahed, the pt. has been taking Lexapro for the past two years for symptoms of depression. Per Nahed, the pt. continues to drive even though he has a hard time transferring from the WC to the vehicle. Per Nahed, she encourages the pt. to maintain a healthy diet as he is diabetic, but I cannot control what he eats or what he does. Nahed stated, I would prefer that he be discharged to a SNF even if its for month to improve his health. He is welcome to return to live with me after. AMY informed Nahed that Per KE Flowers note, the potential D/C plan is [facility] [[id number] [place] [address] ]. Nahed expressed understanding and was agreeable to plan.
[2020-07-10 16:00] VITALS: BP 133/75
--- NOTE | 2020-07-10 18:00 | NUR ---
ms godfrey hd done w/ 1500ml output.
[2020-07-10 18:06] VITALS: BP 125/67
--- NOTE | 2020-07-10 18:53 | NUR ---
ms rn patient transferred to [facility], report given to Hung, a mcneill of 635 dollars endorsed to ambulance staff to endorse to rn over there, sister is aware of patient's money,all needs attended, no distress noted.
== END 2020-07-10 19:04 | DRG 637 ==
LOC: ER 06:41 → TELE2 09:11 → TELE1 07-09 09:50 → MEDSG1 07-09 11:27
PROC: 5A1D70Z Performance of Urinary Filtration, Intermittent, Less than 6 Hours Per Day (ICD-10-PCS; principal; 2020-07-08)
DX: E11.649 Type 2 diabetes mellitus with hypoglycemia without coma (principal); G93.41 Metabolic encephalopathy; I13.2 Hypertensive heart and chronic kidney disease with heart failure and with stage 5 chronic kidney disease, or end stage renal disease; E46 Unspecified protein-calorie malnutrition; N18.6 End stage renal disease; E11.621 Type 2 diabetes mellitus with foot ulcer; Z99.2 Dependence on renal dialysis; L97.519 Non-pressure chronic ulcer of other part of right foot with unspecified severity; L97.529 Non-pressure chronic ulcer of other part of left foot with unspecified severity; D63.8 Anemia in other chronic diseases classified elsewhere; E11.22 Type 2 diabetes mellitus with diabetic chronic kidney disease; E11.40 Type 2 diabetes mellitus with diabetic neuropathy, unspecified; E11.51 Type 2 diabetes mellitus with diabetic peripheral angiopathy without gangrene; E11.622 Type 2 diabetes mellitus with other skin ulcer; Z79.82 Long term (current) use of aspirin; Z79.899 Other long term (current) drug therapy; E78.5 Hyperlipidemia, unspecified; E66.01 Morbid (severe) obesity due to excess calories; Z68.31 Body mass index [BMI] 31.0-31.9, adult; N25.0 Renal osteodystrophy; E03.9 Hypothyroidism, unspecified; E87.5 Hyperkalemia; I50.9 Heart failure, unspecified; F17.200 Nicotine dependence, unspecified, uncomplicated; I95.89 Other hypotension; G89.29 Other chronic pain; N40.0 Benign prostatic hyperplasia without lower urinary tract symptoms; I69.320 Aphasia following cerebral infarction
CPT/HCPCS: 36415; 71045-TC; 74230-TC; 80048-TC; 80061-TC; 80076-TC; 82962-TC; 83735-TC; 84100-TC; 84443-TC; 85025-TC; 86706; 87081-TC; 87340; 90935-TC; 92526; 92611-TC; G0378; J0360; J1815; J2270; J2405; J3490; J7070; U0003